=== PATIENT | male | born 1965 ===

== ENCOUNTER 2018-08-07 14:19 | Observation (INO) | payer OTHER ==
[2018-08-07 14:27] VITALS: O2SAT 100
--- NOTE | 2018-08-07 15:15 | RAD ---
Date of service: 08/07/2018 PROCEDURE: CHEST RADIOGRAPH, 1 VIEW HISTORY: chest pain COMPARISON: None available. FINDINGS: LUNGS: Clear. PLEURA: No pneumothorax or pleural fluid seen. CARDIOVASCULAR: No aortic atherosclerotic calcification present. Normal. OSSEOUS STRUCTURES: No significant abnormalities. VISUALIZED UPPER ABDOMEN: Normal. OTHER FINDINGS: None. IMPRESSION: No active disease.
[2018-08-07 15:19] LABS: BASO # 0.1 K/uL (0.0-0.2); EOS # 0.2 K/uL (0.0-0.7); EOS % 2.8 % (0.0-4.0); HEMOGLOBIN 13.5 g/dL (12.0-18.0); LYMPH # 1.4 K/uL (1.0-4.3); LYMPH % 22.1 % (20.0-40.0); MEAN CELL VOLUME 86.6 fL (80.0-94.0); MEAN CORPUSCULAR HEMOGLOBIN 30.1 pg (27.0-31.0); MEAN CORPUSCULAR HGB CONC 34.8 g/dL (33.0-37.0); MEAN PLATELET VOLUME 7.6 fL (7.2-11.7); MONO # 0.6 K/uL (0.0-0.8); MONO % 9.2 % (0.0-10.0); NEUT % 64.9 % (50.0-75.0); NRBC % 0.1 % (0.0-2.0); RBC 4.47 Mil/uL (4.40-5.90); RED CELL DISTRIBUTION WIDTH 13.3 % (11.5-14.5); WHITE BLOOD COUNT 6.2 K/uL (4.8-10.8)
[2018-08-07 15:31] LABS: ALB/GLOB RATIO 1.4 (1.0-2.1); ALBUMIN 3.8 g/dL (3.5-5.0); ALT/SGPT 36 U/L (21-72); AST/SGOT 28 U/L (17-59); BLOOD UREA NITROGEN 10 mg/dL (9-20); CALCIUM 8.4 mg/dl (8.6-10.4); GFR NON-AFRICAN AMERICAN > 60
--- NOTE | 2018-08-07 15:36 | CT ---
Date of service: 08/07/2018 PROCEDURE: CT HEAD WITHOUT CONTRAST. HISTORY: r/o ICH COMPARISON: None available. TECHNIQUE: Axial computed tomography images were obtained through the head/brain without intravenous contrast. Radiation dose: Total exam DLP = 1100.27 mGy-cm. This CT exam was performed using one or more of the following dose reduction techniques: Automated exposure control, adjustment of the mA and/or kV according to patient size, and/or use of iterative reconstruction technique. FINDINGS: HEMORRHAGE: No intracranial hemorrhage. BRAIN: No mass effect or edema. No atrophy or chronic microvascular ischemic changes. VENTRICLES: Unremarkable. No hydrocephalus. CALVARIUM: Unremarkable. PARANASAL SINUSES: Unremarkable as visualized. No significant inflammatory changes. MASTOID AIR CELLS: Unremarkable as visualized. No inflammatory changes. OTHER FINDINGS: None. IMPRESSION: No acute intracranial findings
[2018-08-07] MEDS ORDERED: Sodium Chloride 0.9% 1,000 ML IV SCH (16:15)
[2018-08-07] MEDS ORDERED: Sodium Chloride 0.9% 1,000 ML ONE (16:18)
--- NOTE | 2018-08-07 17:51 | C.PDOC ---
History Of Present Illness 53 y/o male presents to the ED, sent in by PMD Dr. Rockwell for headache and dizziness with elevated blood pressure. Blood pressure was 160/90 in the office. Patient has hx of HTN, admits to being compliant with medications. Upon arrival to the ED patient is complaining of dizziness, mild headache, and not feeling right. Denies any chest pain, SOB, fever, or cough. Time Seen by Provider: 08/07/18 14:31 Chief Complaint (Nursing): High Blood Pressure History Per: Patient History/Exam Limitations: no limitations Onset/Duration Of Symptoms: Days (2) Current Symptoms Are (Timing): Still Present Past Medical History Reviewed: Historical Data, Nursing Documentation, Vital Signs Vital Signs: Last Vital Signs Temp 97.3 F L 08/07/18 14:23 Pulse 63 08/07/18 17:10 Resp 16 08/07/18 17:10 BP 153/83 H 08/07/18 17:10 Pulse Ox 100 08/07/18 17:10 - Medical History PMH: HTN Family History: States: No Known Family Hx - Social History Hx Alcohol Use: No Hx Substance Use: No Review Of Systems Except As Marked, All Systems Reviewed And Found Negative. Constitutional: Negative for: Fever, Chills Eyes: Negative for: Vision Change Cardiovascular: Negative for: Chest Pain Respiratory: Negative for: Cough, Shortness of Breath Gastrointestinal: Negative for: Nausea, Vomiting Neurological: Positive for: Headache, Dizziness. Negative for: Weakness, Numbness, Change in Speech Physical Exam - Physical Exam Appears: Non-toxic, No Acute Distress Skin: Normal Color, Warm, Dry Head: Atraumatic, Normacephalic Eye(s): bilateral: Normal Inspection, PERRL, EOMI Oral Mucosa: Moist Neck: Normal ROM Chest: Symmetrical, No Tenderness Cardiovascular: Rhythm Regular, No Murmur Respiratory: Normal Breath Sounds, No Rales, No Rhonchi, No Wheezing Gastrointestinal/Abdominal: Soft, No Tenderness, No Distention Extremity: Bilateral: Atraumatic, Normal Color And Temperature, Normal ROM Pulses: Left Radial: Normal, Right Radial: Normal Neurological/Psych: Oriented x3, Normal Speech ED Course And Treatment - Laboratory Results Result Diagrams: 08/07/18 15:15 08/07/18 19:24 ECG: Interpreted By Me, Viewed By Me ECG Rhythm: Sinus Rhythm Interpretation Of ECG: normal axis and normal intervals Rate From EC O2 Sat by Pulse Oximetry: 100 (RA) Pulse Ox Interpretation: Normal - Radiology CXR: Read By Radiologist CXR Interpretation: Yes: No Acute Disease - CT Scan/US CT Head Other Rad Studies (CT/US): Read By Radiologist, Radiology Report Reviewed CT/US Interpretation: Accession No. : [id number]. Patient Name / ID : SID AVELAR / [id number]. Exam Date : 08/07/2018 15:18:27 ( Approved ). Study Comment : Sex / Age : M / 53Y. Creator : Thuy Frost. Dictator : Tulio De La Cruz MD. Mortgage Loan Officer : Ski Technician : Tulio De La Cruz MD. Approver2 : Report Date : 08/07/2018 15:24:50. My Comment : . Date of service: 08/07/2018. PROCEDURE: CT HEAD WITHOUT CONTRAST. HISTORY: r/o ICH. COMPARISON: None available. TECHNIQUE: Axial computed tomography images were obtained through the head/brain without intravenous contrast. Radiation dose: Total exam DLP = 1100.27 mGy-cm. This CT exam was performed using one or more of the following dose reduction techniques: Automated exposure control, adjustment of the mA and/or kV according to patient size, and/or use of iterative reconstruction technique. FINDINGS: HEMORRHAGE: No intracranial hemorrhage. BRAIN: No mass effect or edema. No atrophy or chronic micro vascular ischemic changes. VENTRICLES: Unremarkable. No hydrocephalus. CALVARIUM: Unremarkable. PARANASAL SINUSES: Unremarkable as visualized. No significant inflammatory changes. MASTOID AIR CELLS: Unremarkable as visualized. No inflammatory changes. OTHER FINDINGS: None. IMPRESSION: No acute intracranial findings Medical Decision Making Medical Decision Making: Impression: Hypertension, Dizziness, Headache Plan: --EKG --Blood work with cardiac enzymes --Flu swab --Chest x-ray --CT Head --Meclizine 25 mg PO --IVF hydration --Reassess [address] Rockwell, reviewed work-up, sodium found to be 125. Dr. Rockwell states sodium was wnl 1 month ago. Spoke to hospitalist, will admit to their service in telemetry. Disposition - Disposition Disposition: HOSPITALIZED Disposition Time: 16:15 Condition: FAIR - Clinical Impression Clinical Impression: Hyponatremia, Dizziness - Scribe Statement The provider has reviewed the documentation as recorded by the Al Cohn Provider Attestation: All medical record entries made by the Al were at my direction and personally dictated by me. I have reviewed the chart and agree that the record accurately reflects my personal performance of the history, physical exam, m edical decision making, and the department course for this patient. I have also personally directed, reviewed, and agree with the discharge instructions and disposition.
--- NOTE | 2018-08-07 18:20 | CP.PCM.HP ---
<Cr Wade - Last Filed: 08/07/18 20:11> History of Present Illness - History of Present Illness History of Present Illness: PGY2 Medicine H+P for Dr. Rivero Patient is a 53 year old male with a past medical history of hypertension and diabetes presenting to the hospital with complaint of headaches and nausea x 2 days. Patient was in the office of his PMD, Dr. Rockwell, when he was found to have a BP of 160/90. Patient states he just "does not feel right". During his stay in the emergency room he was found to be hyponatremic. Patient denies any fevers, chills, vomiting, diarrhea, constipation, chest pain, shortness of breath, palpitations, numbness or tingling. PMD: Moiz PMH: Hypertension and Diabetes PSH: Appendectomy Family: "Everyone has diabetes" Social: Denies tobacco, alcohol and illicit drug use Allergies: NKDA Home Meds: Patient states he takes insulin and a blood pressure medication but does not know the names or the doses of his medications. He does know the name of his pharmacy. Present on Admission - Present on Admission Any Indicators Present on Admission: No Review of Systems - Review of Systems All systems: reviewed and no additional remarkable complaints except - Constitutional Constitutional: As Per HPI - EENT Eyes: As Per HPI Ears: As Per HPI Nose/Mouth/Throat: As Per HPI - Cardiovascular Cardiovascular: As Per HPI - Respiratory Respiratory: As Per HPI - Gastrointestinal Gastrointestinal: As Per HPI - Genitourinary Genitourinary: As Per HPI - Musculoskeletal Musculoskeletal: As Per HPI - Integumentary Integumentary: As Per HPI - Neurological Neurological: As Per HPI - Psychiatric Psychiatric: As Per HPI - Endocrine Endocrine: As Per HPI - Hematologic/Lymphatic Hematologic: As Per HPI Past Patient History - Past Social History Smoking Status: Never Smoked - CARDIAC Hx Hypertension: Yes - ENDOCRINE/METABOLIC Hx Diabetes Mellitus Type 2: Yes - PSYCHIATRIC Hx Substance Use: No Meds Allergies/Adverse Reactions: Allergies Allergy/AdvReac Type Severity Reaction Status Date / Time No Known Allergies Allergy Verified 08/07/18 14:27 Physical Exam - Constitutional Appears: Non-toxic, No Acute Distress - Head Exam Head Exam: ATRAUMATIC, NORMOCEPHALIC - Eye Exam Eye Exam: EOMI, Normal appearance - ENT Exam ENT Exam: Mucous Membranes Moist - Neck Exam Neck exam: Positive for: Normal Inspection. Negative for: Lymphadenopathy - Respiratory Exam Respiratory Exam: Clear to Auscultation Bilateral, NORMAL BREATHING PATTERN. absent: Accessory Muscle Use, Rales, Rhonchi, Wheezes, Respiratory Distress - Cardiovascular Exam Cardiovascular Exam: REGULAR RHYTHM, +S1, +S2 - GI/Abdominal Exam GI & Abdominal Exam: Normal Bowel Sounds, Soft. absent: Distended, Guarding, Rebound, Rigid, Tenderness - Extremities Exam Extremities exam: Positive for: normal inspection, pedal pulses present. Negative for: calf tenderness - Neurological Exam Neurological exam: Alert, Oriented x3 - Psychiatric Exam Psychiatric exam: Normal Affect, Normal Mood - Skin Skin Exam: Dry, Warm Results - Vital Signs Recent Vital Signs: Last Vital Signs Temp 97.3 F L 08/07/18 14:23 Pulse 63 08/07/18 17:10 Resp 16 08/07/18 17:10 BP 153/83 H 08/07/18 17:10 Pulse Ox 100 08/07/18 17:55 - Labs Result Diagrams: 08/07/18 15:15 08/07/18 19:24 Labs: Laboratory Results - last 24 hr 08/07/18 08/07/18 08/07/18 14:27 15:15 15:15 WBC 6.2 RBC 4.47 Hgb 13.5 Hct 38.7 MCV 86.6 MCH 30.1 MCHC 34.8 RDW 13.3 Plt Count 150 MPV 7.6 Neut % (Auto) 64.9 Lymph % (Auto) 22.1 Tripp % (Auto) 9.2 Eos % (Auto) 2.8 Baso % (Auto) 1.0 Neut # (Auto) 4.0 Lymph # (Auto) 1.4 Tripp # (Auto) 0.6 Eos # (Auto) 0.2 Baso # (Auto) 0.1 Sodium Potassium Chloride Carbon Dioxide Anion Gap BUN Creatinine Est GFR ( Amer) Est GFR (Non-Af Amer) POC Glucose (mg/dL) 153 H Random Glucose Calcium Total Bilirubin AST ALT Alkaline Phosphatase Troponin I Total Protein Albumin Globulin Albumin/Globulin Ratio Influenza Typ A,B (EIA) Negative for flu a/b 08/07/18 15:15 WBC RBC Hgb Hct MCV MCH MCHC RDW Plt Count MPV Neut % (Auto) Lymph % (Auto) Tripp % (Auto) Eos % (Auto) Baso % (Auto) Neut # (Auto) Lymph # (Auto) Tripp # (Auto) Eos # (Auto) Baso # (Auto) Sodium 125 L Potassium 4.2 Chloride 91 L Carbon Dioxide 25 Anion Gap 13 BUN 10 Creatinine 0.7 L Est GFR ( Amer) > 60 Est GFR (Non-Af Amer) > 60 POC Glucose (mg/dL) Random Glucose 157 H Calcium 8.4 L Total Bilirubin 0.5 AST 28 ALT 36 Alkaline Phosphatase 93 Troponin I < 0.0120 Total Protein 6.5 Albumin 3.8 Globulin 2.7 Albumin/Globulin Ratio 1.4 Influenza Typ A,B (EIA) Assessment & Plan - Assessment and Plan (Free Text) Plan: Hyponatremia Nephro consulted, Dr. Whitaker * f/u recs Na+ 125 * repeat 125 Serum Osmol - 288 Urine Osmol - pending Urine Sodium - pending Zofran 4mg IVP q6h prn for nausea NS @75mL/hr Hypertension Hydralazine 10mg IVP q6h prn for BP > 160/90 TSH - pending Patient does not remember the names of his medications or pharmacy. Patient's is to bring medications tomorrow. Diabetes HgbA1c - pending ISS - Low Patient does not remember the names of his medications or pharmacy. Patient's is to bring medications tomorrow. Prophylactic Care Heparin 5,000u SC q12h Case discussed with Dr. Josefa Hankins Mauro PGY2 <Jordyn Rivero - Last Filed: 08/08/18 18:40> Results - Vital Signs Recent Vital Signs: Last Vital Signs Temp 98.0 F 08/08/18 08:00 Pulse 75 08/08/18 12:05 Resp 20 08/08/18 08:00 BP 150/79 08/08/18 09:11 Pulse Ox 100 08/08/18 12:05 - Labs Result Diagrams: 08/08/18 07:20 08/08/18 07:20 Labs: Laboratory Results - last 24 hr 08/07/18 08/07/18 08/07/18 19:24 19:24 21:19 WBC RBC Hgb Hct MCV MCH MCHC RDW Plt Count MPV Neut % (Auto) Lymph % (Auto) Tripp % (Auto) Eos % (Auto) Baso % (Auto) Neut # (Auto) Lymph # (Auto) Tripp # (Auto) Eos # (Auto) Baso # (Auto) Sodium 125 L Potassium 4.5 Chloride 89 L Carbon Dioxide 26 Anion Gap 14 BUN 11 Creatinine 0.8 Est GFR ( Amer) > 60 Est GFR (Non-Af Amer) > 60 POC Glucose (mg/dL) 423 H* Random Glucose 375 H Hemoglobin A1c Serum Osmolality 288 Uric Acid Calcium 8.4 L Total Bilirubin AST ALT Alkaline Phosphatase Total Protein Albumin Globulin Albumin/Globulin Ratio TSH 3rd Generation Urine Color Urine Clarity Urine pH Ur Specific [place] Urine Protein Urine Glucose (UA) Urine Ketones Urine Blood Urine Nitrate Urine Bilirubin Urine Urobilinogen Ur Leukocyte Esterase Urine WBC (Auto) Urine RBC (Auto) Urine Osmolality Ur Random Sodium 08/07/18 08/08/18 08/08/18 21:50 05:02 06:11 WBC RBC Hgb Hct MCV MCH MCHC RDW Plt Count MPV Neut % (Auto) Lymph % (Auto) Tripp % (Auto) Eos % (Auto) Baso % (Auto) Neut # (Auto) Lymph # (Auto) Tripp # (Auto) Eos # (Auto) Baso # (Auto) Sodium Potassium Chloride Carbon Dioxide Anion Gap BUN Creatinine Est GFR ( Amer) Est GFR (Non-Af Amer) POC Glucose (mg/dL) 251 H Random Glucose Hemoglobin A1c Serum Osmolality Uric Acid Calcium Total Bilirubin AST ALT Alkaline Phosphatase Total Protein Albumin Globulin Albumin/Globulin Ratio TSH 3rd Generation Urine Color Straw Urine Clarity Clear Urine pH 6.0 Ur Specific [place] 1.015 Urine Protein Negative Urine Glucose (UA) 3+ H Urine Ketones Negative Urine Blood Negative Urine Nitrate Negative Urine Bilirubin Negative Urine Urobilinogen Normal Ur Leukocyte Esterase Neg Urine WBC (Auto) < 1 Urine RBC (Auto) < 1 Urine Osmolality 222 L Ur Random Sodium 29 08/08/18 08/08/18 08/08/18 07:20 07:20 07:20 WBC 5.0 RBC 4.62 Hgb 13.9 Hct 39.9 MCV 86.2 MCH 30.1 MCHC 34.9 RDW 12.9 Plt Count 177 MPV 8.2 Neut % (Auto) 55.0 Lymph % (Auto) 28.8 Tripp % (Auto) 12.0 H Eos % (Auto) 3.0 Baso % (Auto) 1.2 Neut # (Auto) 2.7 Lymph # (Auto) 1.4 Tripp # (Auto) 0.6 Eos # (Auto) 0.2 Baso # (Auto) 0.1 Sodium 134 Potassium 4.6 Chloride 101 Carbon Dioxide 25 Anion Gap 13 BUN 19 Creatinine 1.0 Est GFR ( Amer) > 60 Est GFR (Non-Af Amer) > 60 POC Glucose (mg/dL) Random Glucose 295 H Hemoglobin A1c 8.6 H Serum Osmolality Uric Acid 3.3 L Calcium 8.8 Total Bilirubin 0.4 AST 59 D ALT 46 Alkaline Phosphatase 127 H D Total Protein 6.7 Albumin 3.8 Globulin 2.9 Albumin/Globulin Ratio 1.3 TSH 3rd Generation 3.14 Urine Color Urine Clarity Urine pH Ur Specific [place] Urine Protein Urine Glucose (UA) Urine Ketones Urine Blood Urine Nitrate Urine Bilirubin Urine Urobilinogen Ur Leukocyte Esterase Urine WBC (Auto) Urine RBC (Auto) Urine Osmolality Ur Random Sodium 08/08/18 11:02 WBC RBC Hgb Hct MCV MCH MCHC RDW Plt Count MPV Neut % (Auto) Lymph % (Auto) Tripp % (Auto) Eos % (Auto) Baso % (Auto) Neut # (Auto) Lymph # (Auto) Tripp # (Auto) Eos # (Auto) Baso # (Auto) Sodium Potassium Chloride Carbon Dioxide Anion Gap BUN Creatinine Est GFR ( Amer) Est GFR (Non-Af Amer) POC Glucose (mg/dL) 422 H* Random Glucose Hemoglobin A1c Serum Osmolality Uric Acid Calcium Total Bilirubin AST ALT Alkaline Phosphatase Total Protein Albumin Globulin Albumin/Globulin Ratio TSH 3rd Generation Urine Color Urine Clarity Urine pH Ur Specific [place] Urine Protein Urine Glucose (UA) Urine Ketones Urine Blood Urine Nitrate Urine Bilirubin Urine Urobilinogen Ur Leukocyte Esterase Urine WBC (Auto) Urine RBC (Auto) Urine Osmolality Ur Random Sodium Attending/Attestation - Attestation I have personally seen and examined this patient.: Yes I have fully participated in the care of the patient.: Yes I have reviewed all pertinent clinical information: Yes Notes (Text): seen and examined by me Patient has high BP and hyponatremia Assessment and the plan discussed with the resident in detail we will continue his home meds(patient doesn't know his meds.His will bring meds) monitor sugar d/w Dr Whitaker about hyponatremia. we will follow with him continue IV fluids
[2018-08-07] MEDS ORDERED: Dextrose 50% SYRINGE Inj (50 ml) IV PRN (18:28)
[2018-08-07] MEDS ORDERED: Glucagon Recombinant 1 mg Inj IM PRN (18:28)
[2018-08-07 19:42] LABS: BLOOD UREA NITROGEN 11 mg/dL (9-20); CALCIUM 8.4 mg/dl (8.6-10.4); GFR NON-AFRICAN AMERICAN > 60
[2018-08-07 19:43] VITALS: RESP 20
[2018-08-07] MEDS: (Novolin R) Insulin Human Regular 100 units/ml vial SC SCH (21:55)
[2018-08-07 22:06] LABS: OSMOLALITY,URINE 222 mosm/kg (300-1000)
--- NOTE | 2018-08-07 23:33 | CP.PCM.CON ---
History of Present Illness - History of Present Illness History of Present Illness: 53 yo M w/ pmh of htn, dm, presented to ED with headaches and nausea since past 2 days; found to have hyponatremia and hypertensive for which nephrology is being consulted; Patient reports headache, dizziness and associated vomiting since past 1-2 days; denies any vomiting or diarrhea; otherwise says appetite has been well; reports increased urination, particularly when his sugars are elevated (200-300's lately); denies any dysuria; reports having gained weight since past few months after not having been able to work during this period (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 absent: Change in Urinary Stream, Difficulty Urinating - Musculoskeletal Musculoskeletal: As Per HPI - Integumentary Integumentary: absent: Pruritus - Neurological Neurological: As Per HPI Past Patient History - Past Medical History & Family History Pertinent Family History: multiple people with diabetes - Past Social History Smoking Status: Former Smoker (stopped smoking 2 yrs ago) - CARDIAC Hx Hypertension: Yes - ENDOCRINE/METABOLIC Hx Diabetes Mellitus Type 2: Yes - PSYCHIATRIC Hx Substance Use: No Meds Allergies/Adverse Reactions: Allergies Allergy/AdvReac Type Severity Reaction Status Date / Time No Known Allergies Allergy Verified 08/07/18 14:27 - Medications Medications: Current Medications Dextrose (Dextrose 50% Inj) 0 ml IV STAT PRN; Protocol PRN Reason: Hypoglycemia Protocol Dextrose (Glutose 15) 0 gm PO ONCE PRN; Protocol PRN Reason: Hypoglycemia Protocol Glucagon (Glucagen Diagnostic Kit) 0 mg IM STAT PRN; Protocol PRN Reason: Hypoglycemia Protocol Heparin Sodium (Porcine) (Heparin) 5,000 units SC Q12 WOOD Last Admin: 08/07/18 21:56 Dose: 5,000 units Hydralazine HCl (Apresoline) 10 mg IVP Q6H PRN PRN Reason: SBP >160 or DBP>90 Sodium Chloride (Sodium Chloride 0.9%) 1,000 mls @ 75 mls/hr IV .[id number] [facility] Last Admin: 08/07/18 16:20 Dose: 75 mls/hr Dextrose (Dextrose 5% In Water 1000 Ml) 1,000 mls @ 0 mls/hr IV .Q0M PRN; Protocol PRN Reason: Hypoglycemia Protocol Insulin Human Regular (Novolin R) 0 unit SC ACHS [facility]; Protocol Last Admin: 08/07/18 21:55 Dose: 3 unit Ondansetron HCl (Zofran Inj) 4 mg IVP Q6 PRN PRN Reason: Nausea/Vomiting Pneumococcal Polyvalent Vaccine (Pneumovax 23 Vaccine) 0.5 ml IM .ONCE ONE Stop: 08/09/18 10:01 Physical Exam - Constitutional Appears: Non-toxic, No Acute Distress - Eye Exam Eye Exam: Normal appearance. absent: Scleral icterus - ENT Exam ENT Exam: Mucous Membranes Moist - Respiratory Exam Respiratory Exam: Clear to Auscultation Bilateral. absent: Respiratory Distress - Cardiovascular Exam Cardiovascular Exam: RRR, +S1, +S2. absent: JVD - GI/Abdominal Exam GI & Abdominal Exam: Soft. absent: Distended, Tenderness - Exam Exam: absent: Bladder Distension - Extremities Exam Extremities exam: Positive for: pedal pulses present Additional comments: no leg edema; - Back Exam Back exam: absent: CVA tenderness (L), CVA tenderness (R) - Neurological Exam Neurological exam: Alert, Oriented x3 - Psychiatric Exam Psychiatric exam: Normal Affect, Normal Mood - Skin Skin Exam: Normal Color, Warm Results - Vital Signs Recent Vital Signs: Last Vital Signs Temp 98.2 F 08/07/18 18:31 Pulse 74 08/07/18 20:07 Resp 20 08/07/18 18:31 BP 146/80 08/07/18 18:31 Pulse Ox 100 08/07/18 18:31 - Labs Result Diagrams: 08/07/18 15:15 08/07/18 19:24 Labs: Laboratory Results - last 24 hr 08/07/18 08/07/18 08/07/18 14:27 15:15 15:15 WBC 6.2 RBC 4.47 Hgb 13.5 Hct 38.7 MCV 86.6 MCH 30.1 MCHC 34.8 RDW 13.3 Plt Count 150 MPV 7.6 Neut % (Auto) 64.9 Lymph % (Auto) 22.1 Stanley % (Auto) 9.2 Eos % (Auto) 2.8 Baso % (Auto) 1.0 Neut # (Auto) 4.0 Lymph # (Auto) 1.4 Stanley # (Auto) 0.6 Eos # (Auto) 0.2 Baso # (Auto) 0.1 Sodium Potassium Chloride Carbon Dioxide Anion Gap BUN Creatinine Est GFR ( Amer) Est GFR (Non-Af Amer) POC Glucose (mg/dL) 153 H Random Glucose Serum Osmolality Calcium Total Bilirubin AST ALT Alkaline Phosphatase Troponin I Total Protein Albumin Globulin Albumin/Globulin Ratio Urine Osmolality Ur Random Sodium Influenza Typ A,B (EIA) Negative for flu a/b 08/07/18 08/07/18 08/07/18 15:15 19:24 19:24 WBC RBC Hgb Hct MCV MCH MCHC RDW Plt Count MPV Neut % (Auto) Lymph % (Auto) Stanley % (Auto) Eos % (Auto) Baso % (Auto) Neut # (Auto) Lymph # (Auto) Stanley # (Auto) Eos # (Auto) Baso # (Auto) Sodium 125 L 125 L Potassium 4.2 4.5 Chloride 91 L 89 L Carbon Dioxide 25 26 Anion Gap 13 14 BUN 10 11 Creatinine 0.7 L 0.8 Est GFR ( Amer) > 60 > 60 Est GFR (Non-Af Amer) > 60 > 60 POC Glucose (mg/dL) Random Glucose 157 H 375 H Serum Osmolality 288 Calcium 8.4 L 8.4 L Total Bilirubin 0.5 AST 28 ALT 36 Alkaline Phosphatase 93 Troponin I < 0.0120 Total Protein 6.5 Albumin 3.8 Globulin 2.7 Albumin/Globulin Ratio 1.4 Urine Osmolality Ur Random Sodium Influenza Typ A,B (EIA) 08/07/18 08/07/18 21:19 21:50 WBC RBC Hgb Hct MCV MCH MCHC RDW Plt Count MPV Neut % (Auto) Lymph % (Auto) Stanley % (Auto) Eos % (Auto) Baso % (Auto) Neut # (Auto) Lymph # (Auto) Stanley # (Auto) Eos # (Auto) Baso # (Auto) Sodium Potassium Chloride Carbon Dioxide Anion Gap BUN Creatinine Est GFR ( Amer) Est GFR (Non-Af Amer) POC Glucose (mg/dL) 423 H* Random Glucose Serum Osmolality Calcium Total Bilirubin AST ALT Alkaline Phosphatase Troponin I Total Protein Albumin Globulin Albumin/Globulin Ratio Urine Osmolality 222 L Ur Random Sodium 29 Influenza Typ A,B (EIA) - Imaging and Cardiology Chest x-ray Status: Image reviewed by me Additional comment: lungs clear Assessment & Plan (1) Hyponatremia Assessment and Plan: Moderate hyponatremia with urine osm somewhat elevated (drawn about 6 hrs after starting IVF and may have been higher on presentation); likely secondary to vo lume depletion in the setting of erratically controlled blood sugars; repeat bmp showing hyponatremia actually improving if taking into account elevated blood sugars; -agree with NS at 75 cc/hr; -need tighter blood sugar control; -avoid NSAIDS for pain (can potentiate the effect of ADH and worsen hypotremia); -no need for very strict PO fluid restriction for now; -monitor I/O; Status: Acute (2) Diabetes Assessment and Plan: High blood sugar readings; no diabetic foot ulcers but should r/o another infectious cause of high sugars; -will send for UA/culture; -checking urine for microalbumin/creatinine; Status: Acute (3) HTN (hypertension) Assessment and Plan: BP initially elevated, now better controlled after giving IVF (may indicate renin dependent hypertension in the setting of volume depletion); on enalapril at home, can continue same (although should be dosed twice daily for sustained effect); Status: Acute - Assessment and Plan (Free Text) Assessment: Thank you for this referral, we continue to follow.
[2018-08-08 02:07] VITALS: BP 150/79
[2018-08-08 05:08] LABS: URINE BILIRUBIN NEGATIVE (NEGATIVE); URINE BLOOD NEGATIVE (NEGATIVE); URINE CLARITY Clear (Clear); URINE COLOR Straw (YELLOW); URINE GLUCOSE (UA) 3+ mg/dL (Normal); URINE LEUKOCYTE ESTERASE NEG Leu/uL (Negative); URINE PROTEIN NEGATIVE (NEGATIVE); URINE UROBILINOGEN NORMAL mg/dL (0.2-1.0)
[2018-08-08 07:38] LABS: BASO # 0.1 K/uL (0.0-0.2); BASO % 1.2 % (0.0-2.0); EOS # 0.2 K/uL (0.0-0.7); HEMOGLOBIN 13.9 g/dL (12.0-18.0); LYMPH # 1.4 K/uL (1.0-4.3); LYMPH % 28.8 % (20.0-40.0); MEAN CELL VOLUME 86.2 fL (80.0-94.0); MEAN CORPUSCULAR HEMOGLOBIN 30.1 pg (27.0-31.0); MEAN CORPUSCULAR HGB CONC 34.9 g/dL (33.0-37.0); MEAN PLATELET VOLUME 8.2 fL (7.2-11.7); MONO # 0.6 K/uL (0.0-0.8); NEUT # 2.7 K/uL (1.8-7.0); NRBC % 0.2 % (0.0-2.0); RBC 4.62 Mil/uL (4.40-5.90); RED CELL DISTRIBUTION WIDTH 12.9 % (11.5-14.5)
[2018-08-08 07:51] LABS: URIC ACID 3.3 mg/dL (3.5-8.5)
[2018-08-08 08:16] VITALS: TEMP 98
[2018-08-08] MEDS: (Novolin R) Insulin Human Regular 100 units/ml vial SC SCH ×2 (08:40→11:43)
[2018-08-08 09:37] LABS: ALB/GLOB RATIO 1.3 (1.0-2.1); ALBUMIN 3.8 g/dL (3.5-5.0); ALT/SGPT 46 U/L (21-72); AST/SGOT 59 U/L (17-59); BLOOD UREA NITROGEN 19 mg/dL (9-20); CALCIUM 8.8 mg/dl (8.6-10.4); GFR NON-AFRICAN AMERICAN > 60
[2018-08-08] MEDS ORDERED: Insulin Detemir 100 units/ml Vial (Levemir) SC SCH (10:00)
[2018-08-08] MEDS ORDERED: Insulin Detemir 100 units/ml Vial (Levemir) SC STA (11:27)
[2018-08-08 13:24] VITALS: PULSE 75
--- NOTE | 2018-08-08 13:59 | CP.PCM.DIS ---
<TrevorTaniyalinettetomas - Last Filed: 08/08/18 13:55> Provider - Provider Date of Admission: 08/07/18 16:39 Attending physician: Jordyn Rivero MD Consults: 08/07/18 18:42 Nephrology Consult Routine Comment: Consulting Provider: Ramón Whitaker Consulting Physician: Ramón Whitaker Reason for Consult: hyponatremia, hypertension Time Spent in preparation of Discharge (in minutes): 70 Hospital Course - Lab Results Lab Results: Most Recent Lab Values WBC 5.0 K/uL (4.8-10.8) 08/08/18 07:20 RBC 4.62 Mil/uL (4.40-5.90) 08/08/18 07:20 Hgb 13.9 g/dL (12.0-18.0) 08/08/18 07:20 Hct 39.9 % (35.0-51.0) 08/08/18 07:20 MCV 86.2 fL (80.0-94.0) 08/08/18 07:20 MCH 30.1 pg (27.0-31.0) 08/08/18 07:20 MCHC 34.9 g/dL (33.0-37.0) 08/08/18 07:20 RDW 12.9 % (11.5-14.5) 08/08/18 07:20 Plt Count 177 K/uL (130-400) 08/08/18 07:20 MPV 8.2 fL (7.2-11.7) 08/08/18 07:20 Neut % (Auto) 55.0 % (50.0-75.0) 08/08/18 07:20 Lymph % (Auto) 28.8 % (20.0-40.0) 08/08/18 07:20 [place] % (Auto) 12.0 % (0.0-10.0) H 08/08/18 07:20 Eos % (Auto) 3.0 % (0.0-4.0) 08/08/18 07:20 Baso % (Auto) 1.2 % (0.0-2.0) 08/08/18 07:20 Neut # (Auto) 2.7 K/uL (1.8-7.0) 08/08/18 07:20 Lymph # (Auto) 1.4 K/uL (1.0-4.3) 08/08/18 07:20 [place] # (Auto) 0.6 K/uL (0.0-0.8) 08/08/18 07:20 Eos # (Auto) 0.2 K/uL (0.0-0.7) 08/08/18 07:20 Baso # (Auto) 0.1 K/uL (0.0-0.2) 08/08/18 07:20 Sodium 134 mmol/L (132-148) 08/08/18 07:20 Potassium 4.6 mmol/L (3.6-5.2) 08/08/18 07:20 Chloride 101 mmol/L (98-107) 08/08/18 07:20 Carbon Dioxide 25 mmol/L (22-30) 08/08/18 07:20 Anion Gap 13 (10-20) 08/08/18 07:20 BUN 19 mg/dL (9-20) 08/08/18 07:20 Creatinine 1.0 mg/dL (0.8-1.5) 08/08/18 07:20 Est GFR ( Amer) > 60 08/08/18 07:20 Est GFR (Non-Af Amer) > 60 08/08/18 07:20 POC Glucose (mg/dL) 422 mg/dL (65-110) H* 08/08/18 11:02 Random Glucose 295 mg/dL (75-110) H 08/08/18 07:20 Hemoglobin A1c 8.6 % (4.2-6.5) H 08/08/18 07:20 Serum Osmolality 288 mosm/kg (272-300) 08/07/18 19:24 Uric Acid 3.3 mg/dL (3.5-8.5) L 08/08/18 07:20 Calcium 8.8 mg/dl (8.6-10.4) 08/08/18 07:20 Total Bilirubin 0.4 mg/dL (0.2-1.3) 08/08/18 07:20 AST 59 U/L (17-59) D 08/08/18 07:20 ALT 46 U/L (21-72) 08/08/18 07:20 Alkaline Phosphatase 127 U/L (38-126) H D 08/08/18 07:20 Troponin I < 0.0120 ng/mL (0.00-0.120) 08/07/18 15:15 Total Protein 6.7 g/dL (6.3-8.3) 08/08/18 07:20 Albumin 3.8 g/dL (3.5-5.0) 08/08/18 07:20 Globulin 2.9 gm/dL (2.2-3.9) 08/08/18 07:20 Albumin/Globulin Ratio 1.3 (1.0-2.1) 08/08/18 07:20 TSH 3rd Generation 3.14 mIU/L (0.46-4.68) 08/08/18 07:20 Urine Color Straw (YELLOW) 08/08/18 05:02 Urine Clarity Clear (Clear) 08/08/18 05:02 Urine pH 6.0 (5.0-8.0) 08/08/18 05:02 Ur Specific [place] 1.015 (1.003-1.030) 08/08/18 05:02 Urine Protein Negative mg/dL (NEGATIVE) 08/08/18 05:02 Urine Glucose (UA) 3+ mg/dL (Normal) H 08/08/18 05:02 Urine Ketones Negative mg/dL (NEGATIVE) 08/08/18 05:02 Urine Blood Negative (NEGATIVE) 08/08/18 05:02 Urine Nitrate Negative (NEGATIVE) 08/08/18 05:02 Urine Bilirubin Negative (NEGATIVE) 08/08/18 05:02 Urine Urobilinogen Normal mg/dL (0.2-1.0) 08/08/18 05:02 Ur Leukocyte Esterase Neg Horacio/uL (Negative) 08/08/18 05:02 Urine WBC (Auto) < 1 /hpf (0-5) 08/08/18 05:02 Urine RBC (Auto) < 1 /hpf (0-3) 08/08/18 05:02 Urine Osmolality 222 mosm/kg (300-1000) L 08/07/18 21:50 Ur Random Sodium 29 mmol/L 08/07/18 21:50 Influenza Typ A,B (EIA) Negative for flu a/b (NEGATIVE) 08/07/18 15:15 - Hospital Course Hospital Course: Upon admission: Patient is a 53 year old male with a past medical history of hypertension and diabetes presenting to the hospital with complaint of headaches and nausea x 2 days. Patient was in the office of his PMD, Dr. Rockwell, when he was found to have a BP of 160/90. Patient states he just "does not feel right". During his stay in the emergency room he was found to be hyponatremic. Patient denies any fevers, chills, vomiting, diarrhea, constipation, chest pain, shortness of breath, palpitations, numbness or tingling. Pt was admitted for hyponatremia. Hospital Course: Repeat BMP showed hyponatremia. Pt was given IV fluids @75 cc/hr Pt was found to by hypoglycemic. Pt was started on long acting insulin for glucose control. Nephro was consulted and recommended fluids and tight glucose control. Hyponatremia was likely secondary to increased urination and PO water intake as patient is uncontrolled diabetic. The following day, BMP showed resolved hyponatremia. Pt was deemed stable for discharge. Upon Discharge: Pt was deemed stable for discharge to home. Pt was instructed to take home medications of enalapril, lantus, and humulin as prescribed. He was instructed to follow up with his PMD Dr. Rockwell within 5 days. Pt understood instructions and agreed. Discharge Exam - Head Exam Head Exam: ATRAUMATIC, NORMOCEPHALIC - Eye Exam Eye Exam: EOMI, Normal appearance, PERRL Pupil Exam: NORMAL ACCOMODATION - ENT Exam ENT Exam: Mucous Membranes Moist - Respiratory Exam Respiratory Exam: Clear to PA & Lateral, NORMAL BREATHING PATTERN. absent: Rales, Rhonchi, Wheezes - Cardiovascular Exam Cardiovascular Exam: REGULAR RHYTHM, +S1, +S2. absent: Gallop, Rubs, Systolic Murmur - GI/Abdominal Exam GI & Abdominal Exam: Normal Bowel Sounds, Soft. absent: Distended, Tenderness - Extremities Exam Extremities exam: normal inspection - Neurological Exam Neurological exam: Alert, CN II-XII Intact, Oriented x3 - Psychiatric Exam Psychiatric exam: Normal Affect, Normal Mood - Skin Skin Exam: Normal Color Discharge Plan - Discharge Medications Prescriptions: RX: Enalapril Maleate [Vasotec] 10 mg PO BID #60 tab Insulin Glargine, Recombina [Lantus] 25 unit SC HS 30 Days ml Insulin Regular, Human [Humulin R U-500 Kwikpen] 500 unit SQ ACHS 30 Days insuln.pen - Follow Up Plan Condition: FAIR Disposition: HOME/ ROUTINE Additional Instructions: Please follow up with your primary care physician Dr. Rockwell within 5 days. Please check your blood sugar regularly. Please avoid any foods or drink with sugar as it will worsen your diabetes. Please take your medications as prescribed. Please drink plenty of water. Please return to the emergency department if symptoms return. Take care and be well. Por favor rajat un seguimiento con rosado mdico de atencin primaria, el Dr. Rockwell, dentro de los 5 rodriguez. Por favor revise rosado azcar en la jemma regularmente. Por favor, evite cualquier alimento o bebida con azcar ya que empeorar rosado diabetes. Por favor, tome claudia medicamentos segn lo prescrito. Por favor, beber eduardo agua. Por favor regrese al departamento de emergencias si los sntomas regresan. Cudate y sintete yesika. <Jordyn Rivero - Last Filed: 08/08/18 14:06> Provider - Provider Date of Admission: 08/07/18 16:39 Attending physician: Jordyn Rivero MD Consults: 08/07/18 18:42 Nephrology Consult Routine Comment: Consulting Provider: Ramón Whitaker Consulting Physician: Ramón Whitaker Reason for Consult: hyponatremia, hypertension Hospital Course - Lab Results Lab Results: Most Recent Lab Values WBC 5.0 K/uL (4.8-10.8) 08/08/18 07:20 RBC 4.62 Mil/uL (4.40-5.90) 08/08/18 07:20 Hgb 13.9 g/dL (12.0-18.0) 08/08/18 07:20 Hct 39.9 % (35.0-51.0) 08/08/18 07:20 MCV 86.2 fL (80.0-94.0) 08/08/18 07:20 MCH 30.1 pg (27.0-31.0) 08/08/18 07:20 MCHC 34.9 g/dL (33.0-37.0) 08/08/18 07:20 RDW 12.9 % (11.5-14.5) 08/08/18 07:20 Plt Count 177 K/uL (130-400) 08/08/18 07:20 MPV 8.2 fL (7.2-11.7) 08/08/18 07:20 Neut % (Auto) 55.0 % (50.0-75.0) 08/08/18 07:20 Lymph % (Auto) 28.8 % (20.0-40.0) 08/08/18 07:20 [place] % (Auto) 12.0 % (0.0-10.0) H 08/08/18 07:20 Eos % (Auto) 3.0 % (0.0-4.0) 08/08/18 07:20 Baso % (Auto) 1.2 % (0.0-2.0) 08/08/18 07:20 Neut # (Auto) 2.7 K/uL (1.8-7.0) 08/08/18 07:20 Lymph # (Auto) 1.4 K/uL (1.0-4.3) 08/08/18 07:20 [place] # (Auto) 0.6 K/uL (0.0-0.8) 08/08/18 07:20 Eos # (Auto) 0.2 K/uL (0.0-0.7) 08/08/18 07:20 Baso # (Auto) 0.1 K/uL (0.0-0.2) 08/08/18 07:20 Sodium 134 mmol/L (132-148) 08/08/18 07:20 Potassium 4.6 mmol/L (3.6-5.2) 08/08/18 07:20 Chloride 101 mmol/L (98-107) 08/08/18 07:20 Carbon Dioxide 25 mmol/L (22-30) 08/08/18 07:20 Anion Gap 13 (10-20) 08/08/18 07:20 BUN 19 mg/dL (9-20) 08/08/18 07:20 Creatinine 1.0 mg/dL (0.8-1.5) 08/08/18 07:20 Est GFR ( Amer) > 60 08/08/18 07:20 Est GFR (Non-Af Amer) > 60 08/08/18 07:20 POC Glucose (mg/dL) 422 mg/dL (65-110) H* 08/08/18 11:02 Random Glucose 295 mg/dL (75-110) H 08/08/18 07:20 Hemoglobin A1c 8.6 % (4.2-6.5) H 08/08/18 07:20 Serum Osmolality 288 mosm/kg (272-300) 08/07/18 19:24 Uric Acid 3.3 mg/dL (3.5-8.5) L 08/08/18 07:20 Calcium 8.8 mg/dl (8.6-10.4) 08/08/18 07:20 Total Bilirubin 0.4 mg/dL (0.2-1.3) 08/08/18 07:20 AST 59 U/L (17-59) D 08/08/18 07:20 ALT 46 U/L (21-72) 08/08/18 07:20 Alkaline Phosphatase 127 U/L (38-126) H D 08/08/18 07:20 Troponin I < 0.0120 ng/mL (0.00-0.120) 08/07/18 15:15 Total Protein 6.7 g/dL (6.3-8.3) 08/08/18 07:20 Albumin 3.8 g/dL (3.5-5.0) 08/08/18 07:20 Globulin 2.9 gm/dL (2.2-3.9) 08/08/18 07:20 Albumin/Globulin Ratio 1.3 (1.0-2.1) 08/08/18 07:20 TSH 3rd Generation 3.14 mIU/L (0.46-4.68) 08/08/18 07:20 Urine Color Straw (YELLOW) 08/08/18 05:02 Urine Clarity Clear (Clear) 08/08/18 05:02 Urine pH 6.0 (5.0-8.0) 08/08/18 05:02 Ur Specific [place] 1.015 (1.003-1.030) 08/08/18 05:02 Urine Protein Negative mg/dL (NEGATIVE) 08/08/18 05:02 Urine Glucose (UA) 3+ mg/dL (Normal) H 08/08/18 05:02 Urine Ketones Negative mg/dL (NEGATIVE) 08/08/18 05:02 Urine Blood Negative (NEGATIVE) 08/08/18 05:02 Urine Nitrate Negative (NEGATIVE) 08/08/18 05:02 Urine Bilirubin Negative (NEGATIVE) 08/08/18 05:02 Urine Urobilinogen Normal mg/dL (0.2-1.0) 08/08/18 05:02 Ur Leukocyte Esterase Neg Horacio/uL (Negative) 08/08/18 05:02 Urine WBC (Auto) < 1 /hpf (0-5) 08/08/18 05:02 Urine RBC (Auto) < 1 /hpf (0-3) 08/08/18 05:02 Urine Osmolality 222 mosm/kg (300-1000) L 08/07/18 21:50 Ur Random Sodium 29 mmol/L 08/07/18 21:50 Influenza Typ A,B (EIA) Negative for flu a/b (NEGATIVE) 08/07/18 15:15 Attending/Attestation - Attestation I have personally seen and examined this patient.: Yes I have fully participated in the care of the patient.: Yes I have reviewed all pertinent clinical information, including history, physical exam and plan: Yes Notes (Text): Seen and examined,continue home meds and follow his primary care for sugar and BP control 08/08/18 14:06
--- NOTE | 2018-08-08 20:13 | CARD ---
APPROVED REPORT Date of service: 08/07/2018 EKG Measurement [id number] <Conclusion> Normal sinus rhythm Normal ECG
--- NOTE | 2018-08-08 23:08 | CP.PCM.PN ---
Objective - Vital Signs/Intake and Output Vital Signs (last 24 hours): Temp Pulse Resp BP Pulse Ox 98.0 F 75 20 150/79 100 08/08/18 08:00 08/08/18 12:05 08/08/18 08:00 08/08/18 09:11 08/08/18 12:05 - Labs Labs: 08/08/18 07:20 08/08/18 07:20 Assessment and Plan (1) Hyponatremia Status: Acute (2) Diabetes Status: Acute (3) HTN (hypertension) Status: Acute
[2018-08-09] MEDS ORDERED: Pneumococcal 23-Valent Vaccine IM ONE (10:00)
[2018-08-09] MEDS ORDERED: Influenza Vaccine 60 MCG/0.5 ML SYR (3 yr & up) IM ONE (12:00)
== END 2018-08-08 15:00 | disposition home or self-care (01) ==
LOC: C.ER 14:19 → C.6T 16:39
PROVIDERS: ADMIT Internal Medicine; ATTEND Internal Medicine
DX: E87.1 Hypo-osmolality and hyponatremia (principal); I10 Essential (primary) hypertension; E11.649 Type 2 diabetes mellitus with hypoglycemia without coma; Z83.3 Family history of diabetes mellitus; E11.65 Type 2 diabetes mellitus with hyperglycemia
CPT/HCPCS: 36415; 70450; 71045; 80048; 80053; 81001; 82043; 82570; 82948; 83036; 83930; 83935; 84300; 84443; 84484; 84550; 85025; 87086; 87804; 93005; 96372; 99285; G0378; J1644; J7030

== ENCOUNTER 2018-09-26 00:59 | Inpatient (IN) | payer MEDICAID, OTHER ==
[2018-09-26 01:13] VITALS: RESP 20
--- NOTE | 2018-09-26 01:18 | C.PDOC ---
Time Seen by Provider: 09/26/18 01:17 Chief Complaint (Nursing): Chest Pain Past Medical History Vital Signs: Last Vital Signs Temp 97.8 F 09/26/18 01:08 Pulse 81 09/26/18 01:08 Resp 20 09/26/18 01:08 BP 132/83 09/26/18 01:08 Pulse Ox 100 09/26/18 01:08 - Medical History PMH: HTN Surgical History: Appendectomy - Social History Hx Alcohol Use: No Hx Substance Use: No - Immunization History Hx Tetanus Toxoid Vaccination: No Hx Influenza Vaccination: No Hx Pneumococcal Vaccination: No ED Course And Treatment O2 Sat by Pulse Oximetry: 100 Disposition Counseled Patient/Family Regarding: Studies Performed, Diagnosis - Disposition Disposition Time: 01:18
--- NOTE | 2018-09-26 01:19 | C.PDOC ---
History Of Present Illness Patient was watching tv when hw developed some chest pain and felt his heart racing. When medics arrived, he was in svt at around 180-190 bpm. 6 mg iv adenosine given, and pt returned to nsr 70's. Still with mild dull chest wall ache. No f/c/n/v. Speaking in complete sentences Time Seen by Provider: 09/26/18 01:17 Chief Complaint (Nursing): Chest Pain History Per: Patient History/Exam Limitations: no limitations Onset/Duration Of Symptoms: Hrs Current Symptoms Are (Timing): Gone Severity: Moderate Pain Scale Rating Of: 4 Recent travel outside of the [place]: No Additional History Per: EMS, Family Past Medical History Reviewed: Historical Data, Nursing Documentation, Vital Signs Vital Signs: Last Vital Signs Temp 97.8 F 09/26/18 01:08 Pulse 81 09/26/18 01:08 Resp 20 09/26/18 01:08 BP 132/83 09/26/18 01:08 Pulse Ox 100 09/26/18 01:08 - Medical History PMH: HTN Surgical History: Appendectomy Family History: States: No Known Family Hx - Social History Hx Alcohol Use: No Hx Substance Use: No - Immunization History Hx Tetanus Toxoid Vaccination: No Hx Influenza Vaccination: No Hx Pneumococcal Vaccination: No Review Of Systems Constitutional: Negative for: Fever, Chills Eyes: Negative for: Vision Change ENT: Negative for: Throat Pain Cardiovascular: Positive for: Chest Pain, Palpitations Respiratory: Negative for: Shortness of Breath Gastrointestinal: Negative for: Nausea, Vomiting, Abdominal Pain Genitourinary: Negative for: Dysuria Musculoskeletal: Negative for: Back Pain Skin: Negative for: Rash Neurological: Negative for: Weakness Psych: Negative for: Anxiety Physical Exam - Physical Exam Appears: Non-toxic Skin: Warm, Dry Head: Normacephalic Eye(s): bilateral: Normal Inspection Oral Mucosa: Moist Neck: Supple Chest: Symmetrical Cardiovascular: Rhythm Regular Respiratory: No Rales, No Rhonchi Gastrointestinal/Abdominal: Soft, No Tenderness, No Distention Back: Normal Inspection Extremity: Normal ROM Extremity: Bilateral: Atraumatic Pulses: Left Dorsalis Pedis: Normal, Right Dorsalis Pedis: Normal Neurological/Psych: Oriented x3 Gait: Steady ED Course And Treatment - Laboratory Results Result Diagrams: 09/26/18 01:23 09/26/18 01:23 ECG: Interpreted By Me, Viewed By Me ECG Rhythm: Sinus Rhythm (71), Nonspecific Changes O2 Sat by Pulse Oximetry: 100 Pulse Ox Interpretation: Normal - Radiology CXR: Interpreted by Me, Viewed By Me CXR Interpretation: No: Infiltrates, Fracture, Pnemothorax Disposition Discussed With DrDaniel: Gonzalo Sharpe Comment: accepted the pt on his service and took over the care at 2:08 AM Doctor Will See Patient In The: ED Counseled Patient/Family Regarding: Studies Performed, Diagnosis - Disposition Disposition: HOSPITALIZED Disposition Time: :19 Condition: FAIR Forms: [employer] ([place]a) - Clinical Impression Clinical Impression: Chest pain, SVT (supraventricular tachycardia)
[2018-09-26 01:27] LABS: BASO # 0.1 K/uL (0.0-0.2); BASO % 0.9 % (0.0-2.0); EOS # 0.2 K/uL (0.0-0.7); HEMOGLOBIN 14.4 g/dL (12.0-18.0); LYMPH # 2.4 K/uL (1.0-4.3); LYMPH % 28.6 % (20.0-40.0); MEAN CELL VOLUME 85.8 fL (80.0-94.0); MEAN CORPUSCULAR HEMOGLOBIN 29.9 pg (27.0-31.0); MEAN CORPUSCULAR HGB CONC 34.8 g/dL (33.0-37.0); MEAN PLATELET VOLUME 7.9 fL (7.2-11.7); MONO # 0.6 K/uL (0.0-0.8); MONO % 7.4 % (0.0-10.0); NEUT # 5.1 K/uL (1.8-7.0); NEUT % 61.1 % (50.0-75.0); NRBC % 0.1 % (0.0-2.0); RBC 4.83 Mil/uL (4.40-5.90); RED CELL DISTRIBUTION WIDTH 12.8 % (11.5-14.5); WHITE BLOOD COUNT 8.3 K/uL (4.8-10.8)
[2018-09-26 01:38] LABS: INR 0.9
[2018-09-26 01:42] LABS: ALB/GLOB RATIO 1.5 (1.0-2.1); ALT/SGPT 24 U/L (21-72); AST/SGOT 26 U/L (17-59); BLOOD UREA NITROGEN 18 mg/dL (9-20); CALCIUM 8.8 mg/dl (8.6-10.4); GFR NON-AFRICAN AMERICAN > 60
[2018-09-26] MEDS ORDERED: Aspirin 325 mg EC Tablets PO ONE (01:42)
[2018-09-26 01:47] LABS: PROTHROMBIN TIME 9.8 SECONDS (9.7-12.2)
[2018-09-26 01:53] LABS: B-TYPE NATRIURETIC PEPTIDE 211 pg/mL (0-900)
--- NOTE | 2018-09-26 02:20 | CP.PCM.HP ---
<Yusef Sierra - Last Filed: 09/26/18 05:50> History of Present Illness - History of Present Illness History of Present Illness: PGY1 H&P for Medicine Hospitalist Patient is a 53 year old male with a past medical history of HTN, IDDM2 who reports sudden onset of palpitations at 8 pm on 09/25/18. Pt reports balta he was watching TV, when he felt a "punch" in the left side of his chest and proceeded to have palpitations. He denies any other chest pain other than that initial "punch," but reports that these palpitations were constant and associated with lightheadedness, dizziness, nausea, and some blurry vision. He called 911, and HR was noted to be in the 180s by EMS, and they proceeded to give Adenosine which stopped all symptoms. In the ED, EKG shows NSR at 71, no STTW changes, TWI in lead II. Pt received ASA 325 mg PO in the ED as well. Currently, pt has no complaints. Patient denies any fevers, chills, headache, associated falls or trauma, recent medication changes, OTC medication changes, recent alcohol use, increased stress, denies dyspnea or chest pain on exertion. Pt has never had these symptoms before. A few months ago, pt fell off of a ladder and hit his head on a bathtub. He was treated in a hospital in [place], and he reports that "tests was okay "at that time. PMD: Rockwell PMH: HTN, IDDM2 PSH: Appendectomy 7 years ago Meds: Insulin Glargine 35 units in the morning, Enalapril 10 mg PO BID Family: "Everyone has diabetes" Allergies: NKDA FHx: strong family history of diabetes. father passed at age 70. Mother when he was 12 years old. Siblings passed at young age as well. 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 Occasional EtOH use. 7 pack year history (quit 4 years ago). Denies drug use. Present on Admission - Present on Admission Any Indicators Present on Admission: Yes History of Uncontrolled Diabetes: Yes Review of Systems - Review of Systems All systems: reviewed and no additional remarkable complaints except (as per HPI) Past Patient History - Past Social History Smoking Status: Former Smoker - CARDIAC Hx Hypertension: Yes - ENDOCRINE/METABOLIC Hx Diabetes Mellitus Type 2: Yes - PSYCHIATRIC Hx Substance Use: No - SURGICAL HISTORY Hx Appendectomy: Yes - ANESTHESIA Hx Anesthesia: Yes Hx Anesthesia Reactions: No Meds Allergies/Adverse Reactions: Allergies Allergy/AdvReac Type Severity Reaction Status Date / Time No Known Allergies Allergy Verified 09/26/18 01:14 Physical Exam - Constitutional Appears: Non-toxic, No Acute Distress - Head Exam Head Exam: ATRAUMATIC, NORMAL INSPECTION - Eye Exam Eye Exam: EOMI, Normal appearance, PERRL - ENT Exam ENT Exam: Mucous Membranes Moist - Respiratory Exam Respiratory Exam: Clear to Auscultation Bilateral, NORMAL BREATHING PATTERN. absent: Chest Wall Tenderness, Rales, Rhonchi, Wheezes - Cardiovascular Exam Cardiovascular Exam: REGULAR RHYTHM, +S1, +S2. absent: Tachycardia, Irregular Rhythm, Systolic Murmur - GI/Abdominal Exam GI & Abdominal Exam: Normal Bowel Sounds, Soft. absent: Distended, Firm, Guarding, Rebound, Rigid, Tenderness - Back Exam Back exam: NORMAL INSPECTION - Neurological Exam Neurological exam: Alert, Oriented x3 Additional comments: sensation intact in distal feet - Psychiatric Exam Psychiatric exam: Normal Affect, Normal Mood - Skin Skin Exam: Dry, Normal Color, Warm Results - Vital Signs Recent Vital Signs: Last Vital Signs Temp 97.8 F 09/26/18 01:08 Pulse 81 09/26/18 01:08 Resp 20 09/26/18 01:08 BP 132/83 09/26/18 01:08 Pulse Ox 100 09/26/18 02:08 - Labs Result Diagrams: 09/26/18 01:23 09/26/18 01:23 Labs: Laboratory Results - last 24 hr 09/26/18 09/26/18 09/26/18 01:18 01:21 01:23 WBC 8.3 D RBC 4.83 Hgb 14.4 Hct 41.5 MCV 85.8 MCH 29.9 MCHC 34.8 RDW 12.8 Plt Count 197 MPV 7.9 Neut % (Auto) 61.1 Lymph % (Auto) 28.6 [place] % (Auto) 7.4 Eos % (Auto) 2.0 Baso % (Auto) 0.9 Neut # (Auto) 5.1 Lymph # (Auto) 2.4 [place] # (Auto) 0.6 Eos # (Auto) 0.2 Baso # (Auto) 0.1 PT 9.8 INR 0.9 APTT 32 Sodium Potassium Chloride Carbon Dioxide Anion Gap BUN Creatinine Est GFR ( Amer) Est GFR (Non-Af Amer) POC Glucose (mg/dL) 94 Random Glucose Calcium Total Bilirubin AST ALT Alkaline Phosphatase Troponin I NT-Pro-B Natriuret Pep Total Protein Albumin Globulin Albumin/Globulin Ratio TSH 3rd Generation 09/26/18 01:23 WBC RBC Hgb Hct MCV MCH MCHC RDW Plt Count MPV Neut % (Auto) Lymph % (Auto) [place] % (Auto) Eos % (Auto) Baso % (Auto) Neut # (Auto) Lymph # (Auto) [place] # (Auto) Eos # (Auto) Baso # (Auto) PT INR APTT Sodium 135 Potassium 3.1 L Chloride 103 Carbon Dioxide 23 Anion Gap 13 BUN 18 Creatinine 0.8 Est GFR ( Amer) > 60 Est GFR (Non-Af Amer) > 60 POC Glucose (mg/dL) Random Glucose 98 D Calcium 8.8 Total Bilirubin 0.4 AST 26 ALT 24 Alkaline Phosphatase 128 H Troponin I 0.0390 NT-Pro-B Natriuret Pep 211 Total Protein 6.7 Albumin 4.0 Globulin 2.6 Albumin/Globulin Ratio 1.5 TSH 3rd Generation 4.30 Assessment & Plan - Assessment and Plan (Free Text) Assessment: Patient is a 53 year old male with a past medical history of HTN, IDDM2 who reports sudden onset of palpitations. Found to be in SVT in the field, medically cardioverted with Adenosine. Asymptomatic on admission. Plan: SVT, requiring medical cardioversion with SVT; r/o ischemic heart disease Phosphorous to be repleted with Neutro phos 1 packet QID Potassium (3.1), likely secondary to the hypomagnesemia, to be repleted with KDur 40 meq PO Magnesium (1.7) to be repleted with Magnesium 1g IVPB x1 Will start metoprolol succinate 25 mg PO daily for cardioprotection Troponin x1 is 0.0390, will trend q6h x2 CXR shows pulmonary vascular congestion; similar to prior CXR on July admission. F/u official reading Echocardiogram ordered to r/o cardiomyopathy Cardiology, Dr. Gracia, consulted. Recommendations appreciated F/u urine drug screen Hx of IDDM2 HgbA1c is 8.6 on July 2018 admission Accuchecks ACHS Continue home Lantus 35 u SC in the morning ISS low ACHS Hypoglycemia protocol On ACEi for renal protection; bb/low dose ASA for cardioprotection Hx of HTN Continue Enalapril 10 mg PO BID HHD GI ppx: not indicated at this time VTE ppx: heparin 5000 u SC q12 Dispo: tele obs Case was reviewed and discussed with attending physician, Dr. Annemarie Sierra PGY1 <Gonzalo Sharpe - Last Filed: 09/26/18 06:42> Results - Vital Signs Recent Vital Signs: Last Vital Signs Temp 97.5 F L 09/26/18 04:57 Pulse 64 09/26/18 04:57 Resp 20 09/26/18 04:57 BP 120/75 09/26/18 04:57 Pulse Ox 99 09/26/18 04:57 - Labs Result Diagrams: 09/26/18 01:23 09/26/18 01:23 Labs: Laboratory Results - last 24 hr 09/26/18 09/26/18 09/26/18 01:18 01:21 01:23 WBC 8.3 D RBC 4.83 Hgb 14.4 Hct 41.5 MCV 85.8 MCH 29.9 MCHC 34.8 RDW 12.8 Plt Count 197 MPV 7.9 Neut % (Auto) 61.1 Lymph % (Auto) 28.6 [place] % (Auto) 7.4 Eos % (Auto) 2.0 Baso % (Auto) 0.9 Neut # (Auto) 5.1 Lymph # (Auto) 2.4 [place] # (Auto) 0.6 Eos # (Auto) 0.2 Baso # (Auto) 0.1 PT 9.8 INR 0.9 APTT 32 Sodium Potassium Chloride Carbon Dioxide Anion Gap BUN Creatinine Est GFR ( Amer) Est GFR (Non-Af Amer) POC Glucose (mg/dL) 94 Random Glucose Calcium Phosphorus Magnesium Total Bilirubin AST ALT Alkaline Phosphatase Troponin I NT-Pro-B Natriuret Pep Total Protein Albumin Globulin Albumin/Globulin Ratio TSH 3rd Generation 09/26/18 09/26/18 01:23 02:35 WBC RBC Hgb Hct MCV MCH MCHC RDW Plt Count MPV Neut % (Auto) Lymph % (Auto) [place] % (Auto) Eos % (Auto) Baso % (Auto) Neut # (Auto) Lymph # (Auto) [place] # (Auto) Eos # (Auto) Baso # (Auto) PT INR APTT Sodium 135 Potassium 3.1 L Chloride 103 Carbon Dioxide 23 Anion Gap 13 BUN 18 Creatinine 0.8 Est GFR ( Amer) > 60 Est GFR (Non-Af Amer) > 60 POC Glucose (mg/dL) Random Glucose 98 D Calcium 8.8 Phosphorus 1.3 L Magnesium 1.7 Total Bilirubin 0.4 AST 26 ALT 24 Alkaline Phosphatase 128 H Troponin I 0.0390 NT-Pro-B Natriuret Pep 211 Total Protein 6.7 Albumin 4.0 Globulin 2.6 Albumin/Globulin Ratio 1.5 TSH 3rd Generation 4.30 Attending/Attestation - Attestation I have personally seen and examined this patient.: Yes I have fully participated in the care of the patient.: Yes I have reviewed all pertinent clinical information: Yes Notes (Text): 09/26/18 06:39 SVT responded to single dose adenosine, low mag, phos, K, with h/o IDDM/htn, early of siblings and mother. Plan Add low dose betablock will also help if primary cause of svt turns out from CAD Echo serial trop if trop neg may get out patient stress test Cardiology evaluation this admission GI/DVt prophylaxis home meds See orders for detail.
[2018-09-26] MEDS ORDERED: Potassium Chloride 20 mEq ER Tab PO STA (04:00)
[2018-09-26] MEDS ORDERED: Magnesium Sulfate 1 gm in D5W 1 GM/100 ML BAG IVPB ONE (04:06)
[2018-09-26] MEDS ORDERED: Glucagon Recombinant 1 mg Inj IM PRN (04:06)
[2018-09-26] MEDS ORDERED: Dextrose 50% SYRINGE Inj (50 ml) IV PRN (04:06)
[2018-09-26] MEDS: (Novolin R) Insulin Human Regular 100 units/ml vial SC SCH ×4 (08:11→21:44)
[2018-09-26 08:24] LABS: CK-MB 1.73 ng/mL (0.0-3.38)
[2018-09-26 09:04] LABS: TROPONIN I 0.159 ng/mL (0.00-0.120)
[2018-09-26] MEDS: Metoprolol Succinate 25 mg XL Tab PO SCH (10:40)
[2018-09-26] MEDS: Potassium & Sodium Phosphate PO SCH ×4 (10:40→21:43)
[2018-09-26] MEDS: (Lantus) Insulin Glargine, Recombinant SC SCH (10:41)
--- NOTE | 2018-09-26 11:56 | RAD ---
HISTORY: chest pain COMPARISON: Chest x-ray performed 08/07/18 TECHNIQUE: Chest, one view. FINDINGS: LUNGS: No focal consolidation. Please note that chest x-ray has limited sensitivity for the detection of pulmonary masses. PLEURA: No significant pleural effusion identified. No definite pneumothorax . CARDIOVASCULAR: Heart size appears within normal limits. No significant atherosclerotic calcification present. OSSEOUS STRUCTURES: No acute osseous abnormality identified. VISUALIZED UPPER ABDOMEN: Unremarkable. OTHER FINDINGS: None. IMPRESSION: No focal consolidation.
[2018-09-26] MEDS ORDERED: (Novolin R) Insulin Human Regular 100 units/ml vial SC ONE (13:55)
--- NOTE | 2018-09-26 13:57 | CP.PCM.PN ---
<Eliseo Murray - Last Filed: 09/26/18 17:00> Subjective - Date & Time of Evaluation Date of Evaluation: 09/26/18 Time of Evaluation: 13:57 - Subjective Subjective: HOSPITALIST SERVICE Pt seen and examined at bedside, denies any acute events overnight, sitting comfortably in bed happy smiling, does not complain of any chest pain, palpitations, dizziness or blurry vision, these symptoms has all resolved as per pt. Pt has been notifyed of his elevated troponin and need for cardiology assessment, pt understands his current status and agrees with plan/ Objective - Vital Signs/Intake and Output Vital Signs (last 24 hours): Temp Pulse Resp BP Pulse Ox 97.6 F 64 20 118/67 98 09/26/18 08:04 09/26/18 11:58 09/26/18 08:04 09/26/18 10:40 09/26/18 08:04 Intake and Output: 09/26/18 09/26/18 06:59 18:59 Intake Total 100 Balance 100 - Medications Medications: Current Medications Aspirin (Ecotrin) 81 mg PO DAILY [facility] Last Admin: 09/26/18 10:41 Dose: 81 mg Dextrose (Dextrose 50% Inj) 0 ml IV STAT PRN; Protocol PRN Reason: Hypoglycemia Protocol Dextrose (Glutose 15) 0 gm PO ONCE PRN; Protocol PRN Reason: Hypoglycemia Protocol Enalapril Maleate (Vasotec) 10 mg PO BID [facility] Last Admin: 09/26/18 10:40 Dose: 10 mg Enoxaparin Sodium (Lovenox) 80 mg SC ONCE ONE Stop: 09/26/18 14:01 Glucagon (Glucagen Diagnostic Kit) 0 mg IM STAT PRN; Protocol PRN Reason: Hypoglycemia Protocol Dextrose (Dextrose 5% In Water 1000 Ml) 1,000 mls @ 0 mls/hr IV .Q0M PRN; Protocol PRN Reason: Hypoglycemia Protocol Influenza Virus Vaccine (Flucelvax Quad 2335-8534 Syr) 60 mcg IM .ONCE ONE Stop: 09/28/18 12:01 Insulin Glargine (Lantus) 35 unit SC QAM [facility] Last Admin: 09/26/18 10:41 Dose: 35 units Insulin Human Regular (Novolin R) 0 unit SC ACHS [facility]; Protocol Last Admin: 09/26/18 12:30 Dose: 6 units Insulin Human Regular (Novolin R) 6 unit SC STAT ONE Stop: 09/26/18 13:56 Metoprolol Succinate (Toprol Xl) 25 mg PO DAILY [facility] Last Admin: 09/26/18 10:40 Dose: 25 mg Pneumococcal Polyvalent Vaccine (Pneumovax 23 Vaccine) 0.5 ml IM .ONCE ONE Stop: 09/29/18 12:01 Potassium Phos/Sodium Phos (Neutra-Phos) 1 pkt PO QID [facility] Last Admin: 09/26/18 13:06 Dose: 1 pkt - Labs Labs: 09/26/18 01:23 09/26/18 01:23 PT 9.8 SECONDS (9.7-12.2) 09/26/18 01:21 INR 0.9 09/26/18 01:21 APTT 32 SECONDS (21-34) 09/26/18 01:21 - Constitutional Appears: Well, Non-toxic, No Acute Distress - Head Exam Head Exam: ATRAUMATIC, NORMAL INSPECTION - Eye Exam Eye Exam: EOMI, Normal appearance, PERRL Pupil Exam: NORMAL ACCOMODATION, PERRL - ENT Exam ENT Exam: Mucous Membranes Moist - Neck Exam Neck Exam: Normal Inspection. absent: Thyromegaly - Respiratory Exam Respiratory Exam: Clear to Ausculation Bilateral, NORMAL BREATHING PATTERN. absent: Wheezes - Cardiovascular Exam Cardiovascular Exam: RRR, +S1, +S2 - GI/Abdominal Exam GI & Abdominal Exam: Soft. absent: Rigid, Tenderness - Extremities Exam Extremities Exam: Normal Capillary Refill, Normal Inspection. absent: Calf Tenderness - Neurological Exam Neurological Exam: Alert, Awake, CN II-XII Intact, Oriented x3 - Psychiatric Exam Psychiatric exam: Normal Affect, Normal Mood - Skin Skin Exam: Dry, Normal Color, Warm Assessment and Plan - Assessment and Plan (Free Text) Assessment: Patient is a 53 year old male with a past medical history of HTN, IDDM2 who reports sudden onset of palpitations. Found to be in SVT in the field, medically cardioverted with Adenosine. Asymptomatic on admission. Plan: SVT, requiring medical cardioversion with SVT; r/o ischemic heart disease 2nd troponin positive, neg 3rd Toprol XL 25 QD Enalapril 10 BID ASA 81 qd Lovenox 80 sc STAT f/u Echo: Cardiology Dr Sanchez consulted f/u recs Cath tmrw CXR shows pulmonary vascular congestion; similar to prior CXR on July admission. F/u official reading EKG neg x2 F/u urine drug screen Electrolyte Abnormalities -hypokalemia, hypophosphatemia, hypomagnesemia Phosphorous to be repleted with Neutro phos 1 packet QID Potassium (3.1), 60meq given Magnesium (1.7) to be repleted with Magnesium 1g IVPB x1 Hx of IDDM2 HgbA1c is 8.6 on July 2018 admission Accuchecks ACHS Continue home Lantus 35 u SC in the morning ISS low ACHS Hypoglycemia protocol On ACEi for renal protection; bb/low dose ASA for cardioprotection Hx of HTN Continue Enalapril 10 mg PO BID [facility] GI ppx: not indicated at this time VTE ppx: heparin 5000 u SC q12 Dispo: tele obs <Seth Alanis - Last Filed: 09/29/18 19:35> Objective - Vital Signs/Intake and Output Vital Signs (last 24 hours): Temp Pulse Resp BP Pulse Ox 97.7 F 60 20 119/70 100 09/29/18 08:00 09/29/18 08:24 09/29/18 08:00 09/29/18 09:00 09/29/18 08:00 - Labs Labs: 09/29/18 05:59 09/29/18 05:59 PT 9.8 SECONDS (9.7-12.2) 09/26/18 01:21 INR 0.9 09/26/18 01:21 APTT 32 SECONDS (21-34) 09/26/18 01:21 Attending/Attestation - Attestation I have personally seen and examined this patient.: Yes I have fully participated in the care of the patient.: Yes I have reviewed all pertinent clinical information, including history, physical exam and plan: Yes Notes (Text): 09/29/18 19:35 This is a late entry. Care of this patient was gone over in detail with resident Dr. Murray. Seth Alanis D.O.
[2018-09-26] MEDS ORDERED: Enoxaparin 80 mg Syringe SC ONE (14:00)
[2018-09-26] MEDS ORDERED: Potassium Chloride 20 mEq/15 ml LIQ UD PO STA (14:08)
[2018-09-26 14:36] LABS: CK-MB 1.7 ng/mL (0.0-3.38); TROPONIN I 0.105 ng/mL (0.00-0.120)
[2018-09-26 15:05] LABS: BARBITURATES, UR NEGATIVE (NEGATIVE); BENZODIAZEPINES, UR NEGATIVE (NEGATIVE); OPIATES, UR NEGATIVE (NEGATIVE); PHENCYCLIDINE, UR NEGATIVE (NEGATIVE)
--- NOTE | 2018-09-26 17:40 | CARD ---
APPROVED REPORT Date of service: 09/26/2018 EXAM: Two-dimensional and M-mode echocardiogram with Doppler and color Doppler. INDICATION Palpitations RISK FACTORS Diabetes 2D DIMENSIONS IVSd1.1 (0.7-1.1cm)LVDd3.9 (3.9-5.9cm) PWd1.1 (0.7-1.1cm)LA Azfkip69 (18-58mL) LVDs2.2 (2.5-4.0cm)FS (%) 43.2 % LVEF (%)75.0 (>50%)LVEF (Estrella's)62.88 % M-Mode DIMENSIONS Left Atrium (MM)3.77 (2.5-4.0cm)IVSd1.15 (0.7-1.1cm) Aortic Root2.98 (2.2-3.7cm)LVDd3.94 (4.0-5.6cm) Aortic Cusp Exc.2.05 (1.5-2.0cm)PWd0.98 (0.7-1.1cm) FS (%) 44 %LVDs2.20 (2.0-3.8cm) LVEF (%)76 (>50%) Mitral Valve MV E Mwvteeim53.6cm/sMV A Pzttldkk39.7cm/sE/A ratio1.4 TDI Lateral E' Peak V11.26cm/sMedial E' Peak V6.16cm/sE/Lateral E'5.5 E/Medial E'10.0 Tricuspid Valve TR Peak Jowgmffk817ef/sTR Peak Gr.[id number] LEFT VENTRICLE The left ventricle is normal size. There is normal left ventricular wall thickness. The left ventricular function is normal. The left ventricular ejection fraction is within the normal range. There is normal LV segmental wall motion. The left ventricular diastolic function is normal. RIGHT VENTRICLE The right ventricle is normal size. The right ventricular systolic function is normal. ATRIA The left atrium size is normal. The right atrium size is normal. The interatrial septum is intact with no evidence for an atrial septal defect. AORTIC VALVE The aortic valve is normal in structure. No aortic regurgitation is present. There is no aortic valvular stenosis. MITRAL VALVE The mitral valve is normal in structure. There is no mitral valve regurgitation noted. TRICUSPID VALVE The tricuspid valve is normal in structure. There is trace tricuspid regurgitation. PULMONIC VALVE The pulmonary valve is normal in structure. There is trace pulmonic valvular regurgitation. GREAT VESSELS The aortic root is normal in size. The IVC is normal in size and collapses >50% with inspiration. PERICARDIAL EFFUSION There is no pericardial effusion. <Conclusion> Normal bi-ventricular function. No valvular abnormality. No pericardial effusion.
--- NOTE | 2018-09-27 07:18 | CP.PCM.CON ---
History of Present Illness - History of Present Illness History of Present Illness: CC chest pain HPI Patient is a 53 year old male with a past medical history of HTN, IDDM2 who reports sudden onset of palpitations at 8 pm on 09/25/18. Pt reports balta he was watching TV, when he felt a "punch" in the left side of his chest and proceeded to have palpitations. He denies any other chest pain other than that initial "punch," but reports that these palpitations were constant and associated with lightheadedness, dizziness, nausea, and some blurry vision. He called 911, and HR was noted to be in the 180s by EMS, and they proceeded to give Adenosine which stopped all symptoms. Past Patient History - Past Medical History & Family History Past Medical History?: Yes - Past Social History Smoking Status: Former Smoker - CARDIAC Hx Hypertension: Yes - PULMONARY Hx Respiratory Disorders: No - NEUROLOGICAL Hx Neurological Disorder: No - HEENT Hx HEENT Problems: No - RENAL Hx Chronic Kidney Disease: No - ENDOCRINE/METABOLIC Hx Diabetes Mellitus Type 2: Yes - HEMATOLOGICAL/ONCOLOGICAL Hx Blood Disorders: No - INTEGUMENTARY Hx Dermatological Problems: No - MUSCULOSKELETAL/RHEUMATOLOGICAL Hx Musculoskeletal Disorders: No Hx Falls: No - GASTROINTESTINAL Hx Gastrointestinal Disorders: No - GENITOURINARY/GYNECOLOGICAL Hx Genitourinary Disorders: No - PSYCHIATRIC Hx Substance Use: No - SURGICAL HISTORY Hx Appendectomy: Yes - ANESTHESIA Hx Anesthesia: Yes Hx Anesthesia Reactions: No Meds Allergies/Adverse Reactions: Allergies Allergy/AdvReac Type Severity Reaction Status Date / Time No Known Allergies Allergy Verified 09/26/18 01:14 - Medications Medications: Current Medications Aspirin (Ecotrin) 81 mg PO DAILY [facility] Last Admin: 09/26/18 10:41 Dose: 81 mg Dextrose (Dextrose 50% Inj) 0 ml IV STAT PRN; Protocol PRN Reason: Hypoglycemia Protocol Dextrose (Glutose 15) 0 gm PO ONCE PRN; Protocol PRN Reason: Hypoglycemia Protocol Enalapril Maleate (Vasotec) 10 mg PO BID [facility] Last Admin: 09/26/18 17:13 Dose: 10 mg Glucagon (Glucagen Diagnostic Kit) 0 mg IM STAT PRN; Protocol PRN Reason: Hypoglycemia Protocol Dextrose (Dextrose 5% In Water 1000 Ml) 1,000 mls @ 0 mls/hr IV .Q0M PRN; Protocol PRN Reason: Hypoglycemia Protocol Influenza Virus Vaccine (Flucelvax Quad 0895-3239 Syr) 60 mcg IM .ONCE ONE Stop: 09/28/18 12:01 Insulin Glargine (Lantus) 35 unit SC QAM [facility] Last Admin: 09/26/18 10:41 Dose: 35 units Insulin Human Regular (Novolin R) 0 unit SC ACHS [facility]; Protocol Last Admin: 09/26/18 21:44 Dose: Not Given Metoprolol Succinate (Toprol Xl) 25 mg PO DAILY [facility] Last Admin: 09/26/18 10:40 Dose: 25 mg Pneumococcal Polyvalent Vaccine (Pneumovax 23 Vaccine) 0.5 ml IM .ONCE ONE Stop: 09/29/18 12:01 Potassium Phos/Sodium Phos (Neutra-Phos) 1 pkt PO QID [facility] Last Admin: 09/26/18 21:43 Dose: 1 pkt Physical Exam - Constitutional Appears: Non-toxic - Head Exam Head Exam: NORMAL INSPECTION - Eye Exam Eye Exam: absent: Scleral icterus - ENT Exam ENT Exam: Mucous Membranes Moist - Neck Exam Neck exam: Negative for: Lymphadenopathy - Respiratory Exam Respiratory Exam: Decreased Breath Sounds - Cardiovascular Exam Cardiovascular Exam: REGULAR RHYTHM - GI/Abdominal Exam GI & Abdominal Exam: Soft - Extremities Exam Extremities exam: Negative for: pedal edema - Neurological Exam Neurological exam: Alert, Oriented x3 Results - Vital Signs Recent Vital Signs: Last Vital Signs Temp 97.8 F 09/26/18 23:15 Pulse 54 L 09/26/18 23:15 Resp 20 09/26/18 23:15 BP 124/74 09/26/18 23:15 Pulse Ox 99 09/26/18 23:15 - Labs Result Diagrams: 09/26/18 01:23 09/26/18 01:23 Labs: Laboratory Results - last 24 hr 09/26/18 09/26/18 09/26/18 07:18 07:23 11:38 POC Glucose (mg/dL) 138 H 419 H* Total Creatine Kinase 188 H CK-MB (Mass) 1.73 Troponin I 0.1590 H* Urine Opiates Screen Urine Methadone Screen Ur Barbiturates Screen Ur Phencyclidine Scrn Ur Amphetamines Screen U Benzodiazepines Scrn U Oth Cocaine Metabols U Cannabinoids Screen 09/26/18 09/26/18 09/26/18 11:39 14:07 14:23 POC Glucose (mg/dL) 422 H* Total Creatine Kinase 157 CK-MB (Mass) 1.70 Troponin I 0.1050 Urine Opiates Screen Negative Urine Methadone Screen Negative Ur Barbiturates Screen Negative Ur Phencyclidine Scrn Negative Ur Amphetamines Screen Negative U Benzodiazepines Scrn Negative U Oth Cocaine Metabols Negative U Cannabinoids Screen Negative 09/26/18 09/26/18 09/27/18 16:17 21:26 06:43 POC Glucose (mg/dL) 331 H 345 H 364 H Total Creatine Kinase CK-MB (Mass) Troponin I Urine Opiates Screen Urine Methadone Screen Ur Barbiturates Screen Ur Phencyclidine Scrn Ur Amphetamines Screen U Benzodiazepines Scrn U Oth Cocaine Metabols U Cannabinoids Screen Assessment & Plan - Assessment and Plan (Free Text) Assessment: ACS SVT Plan: Trops Echo Lexiscan - if abnormal, cardiac cath
[2018-09-27] MEDS ORDERED: Caffeine Citrated **INJ** 20 MG/ML IV ONE (07:31)
[2018-09-27] MEDS: (Novolin R) Insulin Human Regular 100 units/ml vial SC SCH ×4 (10:07→21:30)
[2018-09-27] MEDS: (Lantus) Insulin Glargine, Recombinant SC SCH (10:08)
[2018-09-27] MEDS: Potassium & Sodium Phosphate PO SCH ×4 (10:10→21:33)
[2018-09-27] MEDS: Metoprolol Succinate 25 mg XL Tab PO SCH (10:10)
--- NOTE | 2018-09-27 10:39 | CP.PCM.PN ---
<Eliseo Murray - Last Filed: 09/27/18 16:54> Subjective - Date & Time of Evaluation Date of Evaluation: 09/27/18 Time of Evaluation: 14:52 - Subjective Subjective: HOSPITALIST SERVICE Pt s/e at bedside, complains of uncontrolled sugars, says hes supposed to take his lantus before breakfast. Pt tolerated stress test well, going for cath tmrw. denies cp sob fc nv. Objective - Vital Signs/Intake and Output Vital Signs (last 24 hours): Temp Pulse Resp BP Pulse Ox 97.9 F 111 H 20 118/71 96 09/27/18 09:47 09/27/18 09:47 09/27/18 09:47 09/27/18 10:10 09/27/18 09:47 Intake and Output: 09/27/18 09/27/18 06:59 18:59 Intake Total 0 Balance 0 - Medications Medications: Current Medications Aspirin (Ecotrin) 81 mg PO DAILY [facility] Last Admin: 09/27/18 10:10 Dose: 81 mg Dextrose (Dextrose 50% Inj) 0 ml IV STAT PRN; Protocol PRN Reason: Hypoglycemia Protocol Dextrose (Glutose 15) 0 gm PO ONCE PRN; Protocol PRN Reason: Hypoglycemia Protocol Enalapril Maleate (Vasotec) 10 mg PO BID [facility] Last Admin: 09/27/18 10:10 Dose: 10 mg Glucagon (Glucagen Diagnostic Kit) 0 mg IM STAT PRN; Protocol PRN Reason: Hypoglycemia Protocol Dextrose (Dextrose 5% In Water 1000 Ml) 1,000 mls @ 0 mls/hr IV .Q0M PRN; Protocol PRN Reason: Hypoglycemia Protocol Influenza Virus Vaccine (Flucelvax Quad 5220-9262 Syr) 60 mcg IM .ONCE ONE Stop: 09/28/18 12:01 Insulin Glargine (Lantus) 35 unit SC QAM [facility] Last Admin: 09/27/18 10:08 Dose: 35 units Insulin Human Regular (Novolin R) 0 unit SC ACHS [facility]; Protocol Last Admin: 09/27/18 10:07 Dose: 5 units Metoprolol Succinate (Toprol Xl) 25 mg PO DAILY [facility] Last Admin: 09/27/18 10:10 Dose: 25 mg Pneumococcal Polyvalent Vaccine (Pneumovax 23 Vaccine) 0.5 ml IM .ONCE ONE Stop: 09/29/18 12:01 Potassium Phos/Sodium Phos (Neutra-Phos) 1 pkt PO QID [facility] Last Admin: 09/27/18 10:10 Dose: 1 pkt - Labs Labs: 09/26/18 01:23 09/26/18 01:23 PT 9.8 SECONDS (9.7-12.2) 09/26/18 01:21 INR 0.9 09/26/18 01:21 APTT 32 SECONDS (21-34) 09/26/18 01:21 - Additional Findings Additional findings: - Constitutional Appears: Well, Non-toxic, No Acute Distress - Head Exam Head Exam: ATRAUMATIC, NORMAL INSPECTION - Eye Exam Eye Exam: EOMI, Normal appearance, PERRL Pupil Exam: NORMAL ACCOMODATION, PERRL - ENT Exam ENT Exam: Mucous Membranes Moist - Neck Exam Neck Exam: Normal Inspection. absent: Thyromegaly - Respiratory Exam Respiratory Exam: Clear to Ausculation Bilateral, NORMAL BREATHING PATTERN. absent: Wheezes - Cardiovascular Exam Cardiovascular Exam: RRR, +S1, +S2 - GI/Abdominal Exam GI & Abdominal Exam: Soft. absent: Rigid, Tenderness - Extremities Exam Extremities Exam: Normal Capillary Refill, Normal Inspection. absent: Calf Tenderness - Neurological Exam Neurological Exam: Alert, Awake, CN II-XII Intact, Oriented x3 - Psychiatric Exam Psychiatric exam: Normal Affect, Normal Mood - Skin Skin Exam: Dry, Normal Color, Warm Assessment and Plan - Assessment and Plan (Free Text) Assessment: Patient is a 53 year old male with a past medical history of HTN, IDDM2 who reports sudden onset of palpitations. Found to be in SVT in the field, medically cardioverted with Adenosine. Asymptomatic on admission. Plan: SVT, requiring medical cardioversion with SVT; r/o ischemic heart disease 2nd troponin positive, neg 3rd Toprol XL 25 QD Enalapril 10 BID ASA 81 qd Lovenox 80 sc STAT Echo: EF 75% Cardiology Dr Sanchez consulted f/u recs normal stress test Cath tmrw- diagnostic CXR shows pulmonary vascular congestion; similar to prior CXR on July admission. F/u official reading EKG neg x2 neg urine drug screen Electrolyte Abnormalities -hypokalemia, hypophosphatemia, hypomagnesemia Phosphorous to be repleted with Neutro phos 1 packet QID Potassium (3.1), 60meq given Magnesium (1.7) to be repleted with Magnesium 1g IVPB x1 Hx of IDDM2 HgbA1c is 8.6 on July 2018 admission Accuchecks ACHS Continue home Lantus 35 u SC in the morning 8am before breakfast ISS low ACHS Hypoglycemia protocol On ACEi for renal protection; bb/low dose ASA for cardioprotection Hx of HTN Continue Enalapril 10 mg PO BID [facility] GI ppx: not indicated at this time VTE ppx: heparin 5000 u SC q12 <Seth Alanis - Last Filed: 09/29/18 19:34> Objective - Vital Signs/Intake and Output Vital Signs (last 24 hours): Temp Pulse Resp BP Pulse Ox 97.7 F 60 20 119/70 100 09/29/18 08:00 09/29/18 08:24 09/29/18 08:00 09/29/18 09:00 09/29/18 08:00 - Labs Labs: 09/29/18 05:59 09/29/18 05:59 PT 9.8 SECONDS (9.7-12.2) 09/26/18 01:21 INR 0.9 09/26/18 01:21 APTT 32 SECONDS (21-34) 09/26/18 01:21 Attending/Attestation - Attestation I have personally seen and examined this patient.: Yes I have fully participated in the care of the patient.: Yes I have reviewed all pertinent clinical information, including history, physical exam and plan: Yes Notes (Text): 09/29/18 19:34 This is a late entry. Care of this patient was gone over in detail with resident Dr. Murray. Seth Alanis D.O.
[2018-09-27 11:57] LABS: BASO # 0.1 K/uL (0.0-0.2); BASO % 1.1 % (0.0-2.0); EOS # 0.2 K/uL (0.0-0.7); EOS % 2.2 % (0.0-4.0); HEMOGLOBIN 14.3 g/dL (12.0-18.0); LYMPH # 2.2 K/uL (1.0-4.3); LYMPH % 28.1 % (20.0-40.0); MEAN CELL VOLUME 87.6 fL (80.0-94.0); MEAN CORPUSCULAR HEMOGLOBIN 29.8 pg (27.0-31.0); MEAN PLATELET VOLUME 8.3 fL (7.2-11.7); MONO # 0.6 K/uL (0.0-0.8); MONO % 7.1 % (0.0-10.0); NEUT # 4.8 K/uL (1.8-7.0); NEUT % 61.5 % (50.0-75.0); RBC 4.79 Mil/uL (4.40-5.90); RED CELL DISTRIBUTION WIDTH 12.7 % (11.5-14.5); WHITE BLOOD COUNT 7.8 K/uL (4.8-10.8)
[2018-09-27 12:33] LABS: ALB/GLOB RATIO 1.6 (1.0-2.1); ALBUMIN 4.2 g/dL (3.5-5.0); ALT/SGPT 28 U/L (21-72); AST/SGOT 23 U/L (17-59); BLOOD UREA NITROGEN 19 mg/dL (9-20); CALCIUM 9.2 mg/dl (8.6-10.4); GFR NON-AFRICAN AMERICAN > 60
[2018-09-27] MEDS ORDERED: (Novolin R) Insulin Human Regular 100 units/ml vial SC ONE (14:51)
[2018-09-27] MEDS ORDERED: (Lantus) Insulin Glargine, Recombinant SC SCH (14:51)
[2018-09-28] MEDS ORDERED: Caffeine Citrated **INJ** 20 MG/ML IV ONE (07:32)
[2018-09-28] MEDS: (Lantus) Insulin Glargine, Recombinant SC SCH ×2 (07:36→10:08)
[2018-09-28 07:48] LABS: BASO # 0.1 K/uL (0.0-0.2); BASO % 1.2 % (0.0-2.0); EOS # 0.2 K/uL (0.0-0.7); HEMOGLOBIN 13.4 g/dL (12.0-18.0); LYMPH # 1.8 K/uL (1.0-4.3); LYMPH % 28.6 % (20.0-40.0); MEAN CELL VOLUME 86.5 fL (80.0-94.0); MEAN CORPUSCULAR HGB CONC 34.7 g/dL (33.0-37.0); MEAN PLATELET VOLUME 8.1 fL (7.2-11.7); MONO # 0.6 K/uL (0.0-0.8); MONO % 9.6 % (0.0-10.0); NEUT # 3.7 K/uL (1.8-7.0); NEUT % 57.6 % (50.0-75.0); RBC 4.47 Mil/uL (4.40-5.90); RED CELL DISTRIBUTION WIDTH 12.8 % (11.5-14.5); WHITE BLOOD COUNT 6.4 K/uL (4.8-10.8)
[2018-09-28] MEDS ORDERED: (Lantus) Insulin Glargine, Recombinant SC SCH (08:00)
[2018-09-28 08:16] LABS: ALB/GLOB RATIO 1.5 (1.0-2.1); ALBUMIN 3.8 g/dL (3.5-5.0); ALT/SGPT 21 U/L (21-72); AST/SGOT 22 U/L (17-59); BLOOD UREA NITROGEN 21 mg/dL (9-20); CALCIUM 8.9 mg/dl (8.6-10.4); GFR NON-AFRICAN AMERICAN > 60
[2018-09-28] MEDS: Potassium & Sodium Phosphate PO SCH ×4 (09:51→21:30)
[2018-09-28] MEDS: (Novolin R) Insulin Human Regular 100 units/ml vial SC SCH ×5 (09:52→21:30)
[2018-09-28] MEDS: Metoprolol Succinate 25 mg XL Tab PO SCH (10:05)
[2018-09-28] MEDS: Metoprolol Succinate 12.5 mg XL Tab PO SCH (10:09)
[2018-09-28] MEDS ORDERED: Influenza Vaccine 60 mcg/0.5 mL SYR (4YR UP) IM ONE (12:00)
--- NOTE | 2018-09-28 13:55 | CP.PCM.PN ---
<Eliseo Murray - Last Filed: 09/28/18 17:12> Subjective - Date & Time of Evaluation Date of Evaluation: 09/28/18 Time of Evaluation: 13:51 - Subjective Subjective: HOSPITALIST SERVICE Pt is seen and examined at bedside, pending results of lexicon stress test, possible cath this afternoon, pt understands this and is waiting for results. Pt has no complaints overnight.denies cp sob fc nv palps Objective - Vital Signs/Intake and Output Vital Signs (last 24 hours): Temp Pulse Resp BP Pulse Ox 97.8 F 55 L 20 124/79 99 09/28/18 08:13 09/28/18 08:13 09/28/18 08:13 09/28/18 09:53 09/28/18 08:13 Intake and Output: 09/28/18 09/28/18 06:59 18:59 Intake Total 240 Output Total 400 Balance -160 - Medications Medications: Current Medications Aspirin (Ecotrin) 81 mg PO DAILY [facility] Last Admin: 09/28/18 09:53 Dose: 81 mg Dextrose (Dextrose 50% Inj) 0 ml IV STAT PRN; Protocol PRN Reason: Hypoglycemia Protocol Dextrose (Glutose 15) 0 gm PO ONCE PRN; Protocol PRN Reason: Hypoglycemia Protocol Enalapril Maleate (Vasotec) 10 mg PO BID [facility] Last Admin: 09/28/18 09:53 Dose: 10 mg Glucagon (Glucagen Diagnostic Kit) 0 mg IM STAT PRN; Protocol PRN Reason: Hypoglycemia Protocol Dextrose (Dextrose 5% In Water 1000 Ml) 1,000 mls @ 0 mls/hr IV .Q0M PRN; Protocol PRN Reason: Hypoglycemia Protocol Insulin Glargine (Lantus) 35 unit SC QAM [facility] Last Admin: 09/28/18 10:08 Dose: Not Given Insulin Human Regular (Novolin R) 0 unit SC ACHS [facility]; Protocol Last Admin: 09/28/18 12:30 Dose: Not Given Metoprolol Succinate (Toprol Xl) 25 mg PO DAILY [facility] Last Admin: 09/28/18 10:09 Dose: 25 mg Pneumococcal Polyvalent Vaccine (Pneumovax 23 Vaccine) 0.5 ml IM .ONCE ONE Stop: 09/29/18 12:01 Potassium Phos/Sodium Phos (Neutra-Phos) 1 pkt PO QID [facility] Last Admin: 09/28/18 13:32 Dose: 1 pkt - Labs Labs: 09/28/18 07:03 09/28/18 07:03 PT 9.8 SECONDS (9.7-12.2) 09/26/18 01:21 INR 0.9 09/26/18 01:21 APTT 32 SECONDS (21-34) 09/26/18 01:21 Assessment and Plan - Assessment and Plan (Free Text) Assessment: Patient is a 53 year old male with a past medical history of HTN, IDDM2 who reports sudden onset of palpitations. Found to be in SVT in the field, medically cardioverted with Adenosine. Asymptomatic on admission. Plan: SVT, requiring medical cardioversion with SVT; r/o ischemic heart disease 2nd troponin positive, neg 3rd Toprol XL 25 QD Enalapril 10 BID ASA 81 qd Lovenox 80 sc STAT Echo: EF 75% Cardiology Dr Sanchez consulted f/u recs normal stress test pending results of lexicon stress test possible f/u cath tomorrow 730AM if abnormal CXR shows pulmonary vascular congestion; similar to prior CXR on July admission. F/u official reading EKG neg x2 neg urine drug screen Electrolyte Abnormalities -hypokalemia, hypophosphatemia, hypomagnesemia Phosphorous to be repleted with Neutro phos 1 packet QID Potassium (3.1), 60meq given Magnesium (1.7) to be repleted with Magnesium 1g IVPB x1 Hx of IDDM2 HgbA1c is 8.6 on July 2018 admission Accuchecks ACHS Continue home Lantus 35 u SC in the morning 8am before breakfast ISS low ACHS Hypoglycemia protocol On ACEi for renal protection; bb/low dose ASA for cardioprotection Hx of HTN Continue Enalapril 10 mg PO BID HHD GI ppx: not indicated at this time VTE ppx: heparin 5000 u SC q12 <Seth Alanis - Last Filed: 09/29/18 09:42> Objective - Vital Signs/Intake and Output Vital Signs (last 24 hours): Temp Pulse Resp BP Pulse Ox 97.7 F 60 20 119/70 100 09/29/18 08:00 09/29/18 08:24 09/29/18 08:00 09/29/18 09:00 09/29/18 08:00 - Medications Medications: Current Medications Aspirin (Ecotrin) 81 mg PO DAILY [facility] Last Admin: 09/29/18 09:00 Dose: 81 mg Dextrose (Dextrose 50% Inj) 0 ml IV STAT PRN; Protocol PRN Reason: Hypoglycemia Protocol Dextrose (Glutose 15) 0 gm PO ONCE PRN; Protocol PRN Reason: Hypoglycemia Protocol Enalapril Maleate (Vasotec) 10 mg PO BID [facility] Last Admin: 09/29/18 09:00 Dose: 10 mg Glucagon (Glucagen Diagnostic Kit) 0 mg IM STAT PRN; Protocol PRN Reason: Hypoglycemia Protocol Dextrose (Dextrose 5% In Water 1000 Ml) 1,000 mls @ 0 mls/hr IV .Q0M PRN; Protocol PRN Reason: Hypoglycemia Protocol Insulin Glargine (Lantus) 35 unit SC QAM [facility] Last Admin: 09/29/18 09:00 Dose: 35 units Insulin Human Regular (Novolin R) 0 unit SC ACHS [facility]; Protocol Last Admin: 09/29/18 08:30 Dose: 1 units Metoprolol Succinate (Toprol Xl) 25 mg PO DAILY [facility] Last Admin: 09/29/18 09:02 Dose: Not Given Pneumococcal Polyvalent Vaccine (Pneumovax 23 Vaccine) 0.5 ml IM .ONCE ONE Stop: 09/29/18 12:01 Potassium Phos/Sodium Phos (Neutra-Phos) 1 pkt PO QID [facility] Last Admin: 09/29/18 09:00 Dose: 1 pkt - Labs Labs: 09/29/18 05:59 09/29/18 05:59 PT 9.8 SECONDS (9.7-12.2) 09/26/18 01:21 INR 0.9 09/26/18 01:21 APTT 32 SECONDS (21-34) 09/26/18 01:21 Attending/Attestation - Attestation I have personally seen and examined this patient.: Yes I have fully participated in the care of the patient.: Yes I have reviewed all pertinent clinical information, including history, physical exam and plan: Yes Notes (Text): 09/29/18 09:31 Patient was seen and examined at 9:15 AM. Care of this patient was gone over in detail with resident Dr. Murray. Currently upon FULL ROS: Some lower anterior right arm soreness distal to the IV access NO other complaints upon FULL ROS HEENT, Cardio, Resp, GI, Ext, CN II through XII exams were uremarkable. Spoke with Computer Applications Engineer Dr. Sanchez this morning: Lexiscan Stress Test was normal and therefore cardiac catheterization was cancelled. Will need outpatient Cardiology follow up. The following instructions were gone over with the patient through the use of Nepali Interpretor Service provided by [employer] (Марина [id number]): 1). Schedule follow up with Primary Care Physician Dr. Rockwell to take place in the next 7 days. 2). Through Dr. Rockwell obtain further evaluation by a Computer Applications Engineer for your rapid heart rate which at the time of your discharge had resolved. 3). You stated that you had enough of the Lantus Insulin at home as provided by Dr. Rockwell. Please continue to use as instructed by Dr. Rockwell. 4). The following 2 prescriptions were sent to your [facility] located at [address] [place] [address] in [place], [place] as requested by you. Please use as directed: Metoprolol Succinate 25 mg, 1 tablet by mouth 1x/day (2 PM), Dispense #30, NO refills Enalapril 10 mg, 1 tablet by mouth 2x/day (8 AM and 8 PM), Dispense #60, NO refills 5). Please be careful of your coffee and caffeine intake 6). Please take care and be well. Seth Alanis D.O.
--- NOTE | 2018-09-28 15:57 | CARD ---
APPROVED REPORT Date of service: 09/26/2018 EKG Measurement Heart [id number] [id number] <Conclusion> Normal sinus rhythm Normal ECG
--- NOTE | 2018-09-28 15:57 | CARD ---
APPROVED REPORT Date of service: 09/26/2018 EKG Measurement Heart [id number] [place] [id number] <Conclusion> Normal sinus rhythm Nonspecific T wave abnormality Abnormal ECG
--- NOTE | 2018-09-28 17:54 | CARD ---
APPROVED REPORT Date of service: 09/28/2018 Protocol: LEXISCAN Test Type: LEXISCAN STRESS Test Indications: CP Medications: LIST Medical History: CP Target HR: 167 bpm Resting ECG: normal Resting Heart Rate: 58 bpm Resting Blood Pressure: 126/80mmHg submaximum (85%): 142 bpm TEST SUMMARY JYUNYOORCILBQJ84:02..1.059/.0. PREINFSNHYPERV.05:520.00.01.282207/80.0. INFUSIONDOSE 100:300.00.01.062/.0. QTLUJEFLX36:[id number]/80.0. PROCEDURE Pharmacologic stress testing was performed using 0.4mg per 5ml of regadenoson given intravenously over 7-10 seconds. POST EXERCISE Reason for Termination: Protocol Completed Target HR: No Max HR: 62 bpm 62% of Maximum Predicted HR: 167 bpm Exercise duration: 00:30 min:sec, 0 Stage Exercise capacity: 1.0METs Max Blood Pressure: 126/80mmHg Blood Pressure response to exercise: normal resting BP - appropriate response Heart Rate response to exercise: appropriate Chest Pain: No, none Angina index: 0 Arrhythmia: No, none ST Change: No, none Deviation: 0 mm INTERPRETATION Stress EKG Conclusion: NEGATIVE LEXISCAN STRESS TEST NORMAL BP RESPONSE TO LEXISCAN NUCLEAR STUDIES TO BE READ SEPARATELY EXAM: Myocardial Perfusion REST/STRESS Imaging Protocol The imaging protocol used to acquire images was Rest Tc-99m/stress Tc-99m 2 days Rest Spect myocardial perfusion imaging was performed in supine position 42 minutes following the injection of 14.5 mCi of Tc-99 Myoview. Gated Stress Spect was performed 45 minutes after intravenous 32.9 mCi Tc-99 Myoview injection. The images were gated to evaluate regional wall motion and calculate ventricular ejection fraction.Images were reconstructed using backfilter projection method in short horizontal and verticle long axis. Spect slices were generated. RESTING DATA EDV66.05syTY9.20L/min ESV10.00mlMyocardial Eftd726.00g Av. Heart Rate57.00bpm EF85.00% STRESS DATA EDV77.08odPD3.30L/min ESV22.00mlMyocardial Pdlb839.00g EF71.00% Regional WT score at stress:0.00 Regional WM score at stress:0.00 Summed WT score at stress:8.00 Av. Heart Rate60.00bpmSummed WM score at stress:1.00 LV Perf. Quant 17 Seg. SSS0.00 17 Seg. SRS0.00 17 Seg. SDS0.00 Stress Defect Extent (% LAD)0.00Rest Defect Extent (% LAD)0.00Rev. Defect Extent (% LAD)0.00 Stress Defect Extent (% LCX)0.00Rest Defect Extent (% LCX)0.00Rev. Defect Extent (% LCX)0.00 Stress Defect Extent (% RCA)0.00Rest Defect Extent (% RCA)0.00Rev. Defect Extent (% RCA)0.00 Stress Defect Extent (% ABDOULAYE)0.00Rest Defect Extent (% ABDOULAYE)0.00Rev. Defect Extent (% ABDOULAYE)0.00 IMPRESSION Normal Myocardial Perfusion exercise stress study Left Ventricle LV Function:Left ventricle systolic function is normal. The Ejection Fraction is >70%. Regional Wall Motion:No regional wall motion abnormalities noted. Metabolism/Perfusion Defects: There is no stress-induced ischemia noted. There are no perfusion/metabolism defects. Conclusion 1. There is no stress-induced ischemia noted. 2. Left ventricle systolic function is normal. 3. The Ejection Fraction is >70%.
[2018-09-29 06:04] LABS: BASO # 0.1 K/uL (0.0-0.2); BASO % 1.2 % (0.0-2.0); EOS # 0.2 K/uL (0.0-0.7); EOS % 3.4 % (0.0-4.0); HEMOGLOBIN 13.3 g/dL (12.0-18.0); LYMPH # 2.3 K/uL (1.0-4.3); LYMPH % 34.2 % (20.0-40.0); MEAN CELL VOLUME 86.9 fL (80.0-94.0); MEAN CORPUSCULAR HEMOGLOBIN 30.3 pg (27.0-31.0); MEAN CORPUSCULAR HGB CONC 34.9 g/dL (33.0-37.0); MEAN PLATELET VOLUME 7.9 fL (7.2-11.7); MONO # 0.7 K/uL (0.0-0.8); MONO % 10.4 % (0.0-10.0); NEUT # 3.5 K/uL (1.8-7.0); NEUT % 50.8 % (50.0-75.0); NRBC % 0.1 % (0.0-2.0); RBC 4.4 Mil/uL (4.40-5.90); RED CELL DISTRIBUTION WIDTH 13.1 % (11.5-14.5); WHITE BLOOD COUNT 6.9 K/uL (4.8-10.8)
[2018-09-29 06:32] LABS: ALB/GLOB RATIO 1.5 (1.0-2.1); ALBUMIN 3.7 g/dL (3.5-5.0); ALT/SGPT 25 U/L (21-72); AST/SGOT 22 U/L (17-59); BLOOD UREA NITROGEN 17 mg/dL (9-20); CALCIUM 8.9 mg/dl (8.6-10.4); GFR NON-AFRICAN AMERICAN > 60
[2018-09-29 08:30] VITALS: PULSE 60
[2018-09-29] MEDS: (Novolin R) Insulin Human Regular 100 units/ml vial SC SCH (08:30)
[2018-09-29 08:44] VITALS: TEMP 97.7; O2SAT 100
[2018-09-29] MEDS: (Lantus) Insulin Glargine, Recombinant SC SCH (09:00)
[2018-09-29] MEDS: Potassium & Sodium Phosphate PO SCH (09:00)
[2018-09-29 09:01] VITALS: BP 119/70
[2018-09-29] MEDS: Metoprolol Succinate 12.5 mg XL Tab PO SCH (09:02)
--- NOTE | 2018-09-29 11:05 | CP.PCM.DIS ---
Provider - Provider Date of Admission: 09/26/18 02:07 Attending physician: Gonzalo Sharpe MD Consults: 09/26/18 13:56 Cardiology Consult Routine Comment: Consulting Provider: Gene Sanhcez Consulting Physician: Gene Sanchez Reason for Consult: SVT and Elevated Troponin. 2 CAD Risk Factors: Age & DM Time Spent in preparation of Discharge (in minutes): 45 Diagnosis - Discharge Diagnosis (1) Elevated troponin Status: Resolved (2) Chest pain Status: Resolved (3) Diabetes Status: Chronic (4) HTN (hypertension) Status: Chronic (5) SVT (supraventricular tachycardia) Status: Resolved Hospital Course - Lab Results Lab Results: Most Recent Lab Values WBC 6.9 K/uL (4.8-10.8) 09/29/18 05:59 RBC 4.40 Mil/uL (4.40-5.90) 09/29/18 05:59 Hgb 13.3 g/dL (12.0-18.0) 09/29/18 05:59 Hct 38.2 % (35.0-51.0) 09/29/18 05:59 MCV 86.9 fL (80.0-94.0) 09/29/18 05:59 MCH 30.3 pg (27.0-31.0) 09/29/18 05:59 MCHC 34.9 g/dL (33.0-37.0) 09/29/18 05:59 RDW 13.1 % (11.5-14.5) 09/29/18 05:59 Plt Count 180 K/uL (130-400) 09/29/18 05:59 MPV 7.9 fL (7.2-11.7) 09/29/18 05:59 Neut % (Auto) 50.8 % (50.0-75.0) 09/29/18 05:59 Lymph % (Auto) 34.2 % (20.0-40.0) 09/29/18 05:59 [place] % (Auto) 10.4 % (0.0-10.0) H 09/29/18 05:59 Eos % (Auto) 3.4 % (0.0-4.0) 09/29/18 05:59 Baso % (Auto) 1.2 % (0.0-2.0) 09/29/18 05:59 Neut # (Auto) 3.5 K/uL (1.8-7.0) 09/29/18 05:59 Lymph # (Auto) 2.3 K/uL (1.0-4.3) 09/29/18 05:59 [place] # (Auto) 0.7 K/uL (0.0-0.8) 09/29/18 05:59 Eos # (Auto) 0.2 K/uL (0.0-0.7) 09/29/18 05:59 Baso # (Auto) 0.1 K/uL (0.0-0.2) 09/29/18 05:59 PT 9.8 SECONDS (9.7-12.2) 09/26/18 01:21 INR 0.9 09/26/18 01:21 APTT 32 SECONDS (21-34) 09/26/18 01:21 Sodium 136 mmol/L (132-148) 09/29/18 05:59 Potassium 3.8 mmol/L (3.6-5.2) 09/29/18 05:59 Chloride 102 mmol/L (98-107) 09/29/18 05:59 Carbon Dioxide 29 mmol/L (22-30) 09/29/18 05:59 Anion Gap 8 (10-20) L 09/29/18 05:59 BUN 17 mg/dL (9-20) 09/29/18 05:59 Creatinine 0.8 mg/dL (0.8-1.5) 09/29/18 05:59 Est GFR ( Amer) > 60 09/29/18 05:59 Est GFR (Non-Af Amer) > 60 09/29/18 05:59 POC Glucose (mg/dL) 172 mg/dL (65-110) H 09/29/18 06:36 Random Glucose 175 mg/dL (75-110) H D 09/29/18 05:59 Calcium 8.9 mg/dl (8.6-10.4) 09/29/18 05:59 Phosphorus 5.2 mg/dL (2.5-4.5) H 09/29/18 05:59 Magnesium 1.8 mg/dL (1.6-2.3) 09/29/18 05:59 Total Bilirubin 0.2 mg/dL (0.2-1.3) 09/29/18 05:59 AST 22 U/L (17-59) 09/29/18 05:59 ALT 25 U/L (21-72) 09/29/18 05:59 Alkaline Phosphatase 117 U/L (38-126) 09/29/18 05:59 Total Creatine Kinase 157 U/L (55-170) 09/26/18 14:07 CK-MB (Mass) 1.70 ng/mL (0.0-3.38) 09/26/18 14:07 Troponin I 0.1050 ng/mL (0.00-0.120) 09/26/18 14:07 NT-Pro-B Natriuret Pep 211 pg/mL (0-900) 09/26/18 01:23 Total Protein 6.3 g/dL (6.3-8.3) 09/29/18 05:59 Albumin 3.7 g/dL (3.5-5.0) 09/29/18 05:59 Globulin 2.5 gm/dL (2.2-3.9) 09/29/18 05:59 Albumin/Globulin Ratio 1.5 (1.0-2.1) 09/29/18 05:59 TSH 3rd Generation 4.30 mIU/L (0.46-4.68) 09/26/18 01:23 Urine Opiates Screen Negative (NEGATIVE) 09/26/18 14:23 Urine Methadone Screen Negative (NEGATIVE) 09/26/18 14:23 Ur Barbiturates Screen Negative (NEGATIVE) 09/26/18 14:23 Ur Phencyclidine Scrn Negative (NEGATIVE) 09/26/18 14:23 Ur Amphetamines Screen Negative (NEGATIVE) 09/26/18 14:23 U Benzodiazepines Scrn Negative (NEGATIVE) 09/26/18 14:23 U Oth Cocaine Metabols Negative (NEGATIVE) 09/26/18 14:23 U Cannabinoids Screen Negative (NEGATIVE) 09/26/18 14:23 - Hospital Course Hospital Course: Patient is a 53 year old male with a past medical history of HTN, IDDM2 who reports sudden onset of palpitations at 8 pm on 09/25/18. Pt reports balta he was watching TV, when he felt a "punch" in the left side of his chest and proceeded to have palpitations. He denies any other chest pain other than that initial "punch," but reports that these palpitations were constant and associated with lightheadedness, dizziness, nausea, and some blurry vision. He called 911, and HR was noted to be in the 180s by EMS, and they proceeded to give Adenosine which stopped all symptoms. In the ED, EKG shows NSR at 71, no STTW changes, TWI in lead II. Pt received ASA 325 mg PO in the ED as well. Currently, pt has no complaints. Patient denies any fevers, chills, headache, associated falls or trauma, recent medication changes, OTC medication changes, recent alcohol use, increased stress, denies dyspnea or chest pain on exertion. Pt has never had these symptoms before. A few months ago, pt fell off of a ladder and hit his head on a bathtub. He was treated in a hospital in [place], and he reports that "tests was okay "at that time. PMD: Moiz PMH: HTN, IDDM2 PSH: Appendectomy 7 years ago Meds: Insulin Glargine 35 units in the morning, Enalapril 10 mg PO BID Family: "Everyone has diabetes" Allergies: NKDA FHx: strong family history of diabetes. father passed at age 70. Mother when he was 12 years old. Siblings passed at young age as well. 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 Occasional EtOH use. 7 pack year history (quit 4 years ago). Denies drug use. Patient is a 53 year old male with a past medical history of HTN, IDDM2 who reports sudden onset of palpitations. Found to be in SVT in the field, medically cardioverted with Adenosine. Asymptomatic on admission. Treated for: SVT, requiring medical cardioversion with SVT; r/o ischemic heart disease, Electrolyte Abnormalities -hypokalemia, hypophosphatemia, hypomagnesemia, Hx of IDDM2, Hx of HTN Pt had his 2nd troponin positive, neg 3rd, HgbA1c is 8.6 on July 2018 admission Pt was given: Toprol XL 25 QD Enalapril 10 BID ASA 81 qd Lovenox 80 sc STAT Phosphorous to be repleted with Neutro phos 1 packet QID Potassium (3.1), 60meq given Magnesium (1.7) to be repleted with Magnesium 1g IVPB x1 Continue home Lantus 35 u SC in the morning 8am before breakfast ISS low ACHS Imanging and Diagnostics: Echo: EF 75% Cardiology Dr Sanchez consulted f/u recs normal stress test normal lexicon stress test CXR shows pulmonary vascular congestion; similar to prior CXR on July admission. F/u official reading EKG neg x2 neg urine drug screen The following instructions were gone over with the patient through the use of Lebanese Interpretor Service provided by [employer] [id number]): 1). Schedule follow up with Primary Care Physician Dr. Rockwell to take place in the next 7 days. 2). Through Dr. Rockwell obtain further evaluation by a Supervisor Phosphoric Acid for your rapid heart rate which at the time of your discharge had resolved. 3). You stated that you had enough of the Lantus Insulin at home as provided by Dr. Rockwell. Please continue to use as instructed by Dr. Rockwell. 4). The following 2 prescriptions were sent to your [facility] located at [address] [place] [address] in [place], [place] as requested by you. Please use as directed: Metoprolol Succinate 25 mg, 1 tablet by mouth 1x/day (2 PM), Dispense #30, NO refills Enalapril 10 mg, 1 tablet by mouth 2x/day (8 AM and 8 PM), Dispense #60, NO refills Atorvastatin 10 mg, 1 tablet by mouth 1x/day (8 PM) 5). Please be careful of your coffee and caffeine intake 6). Please take care and be well. this is a summary please refer to [facility] for complete records Discharge Exam - Head Exam Head Exam: NORMAL INSPECTION - Additional Findings Additional findings: - Constitutional Appears: Well, Non-toxic, No Acute Distress - Head Exam Head Exam: ATRAUMATIC, NORMAL INSPECTION - Eye Exam Eye Exam: EOMI, Normal appearance, PERRL Pupil Exam: NORMAL ACCOMODATION, PERRL - ENT Exam ENT Exam: Mucous Membranes Moist - Neck Exam Neck Exam: Normal Inspection. absent: Thyromegaly - Respiratory Exam Respiratory Exam: Clear to Ausculation Bilateral, NORMAL BREATHING PATTERN. absent: Wheezes - Cardiovascular Exam Cardiovascular Exam: RRR, +S1, +S2 - GI/Abdominal Exam GI & Abdominal Exam: Soft. absent: Rigid, Tenderness - Extremities Exam Extremities Exam: Normal Capillary Refill, Normal Inspection. absent: Calf Tenderness - Neurological Exam Neurological Exam: Alert, Awake, CN II-XII Intact, Oriented x3 - Psychiatric Exam Psychiatric exam: Normal Affect, Normal Mood - Skin Skin Exam: Dry, Normal Color, Warm Discharge Plan - Discharge Medications Prescriptions: Atorvastatin [Lipitor] 10 mg PO DIN #30 tab Enalapril Maleate [Vasotec] 10 mg PO BID #60 tab Metoprolol Succinate XL [Toprol XL] 25 mg PO DAILY #30 tab - Follow Up Plan Condition: FAIR Disposition: HOME/ ROUTINE Instructions: Chest Pain (DC), Supraventricular Tachycardia (SVT), Atorvastatin, Enalapril, Metoprolol, Hypertension (DC), Hypertension (GEN) Additional Instructions: The following instructions were gone over with the patient through the use of Lebanese Interpretor Service provided by [employer] (Марина [id number]): 1). Schedule follow up with Primary Care Physician Dr. Rockwell to take place in the next 7 days. 2). Through Dr. Rockwell obtain further evaluation by a Supervisor Phosphoric Acid for your rapid heart rate which at the time of your discharge had resolved. 3). You stated that you had enough of the Lantus Insulin at home as provided by Dr. Rockwell. Please continue to use as instructed by Dr. Rockwell. 4). The following 2 prescriptions were sent to your [facility] located at [address] [place] [address] in [place], [place] as requested by you. Please use as directed: Metoprolol Succinate 25 mg, 1 tablet by mouth 1x/day (2 PM), Dispense #30, NO refills Enalapril 10 mg, 1 tablet by mouth 2x/day (8 AM and 8 PM), Dispense #60, NO refills 5). Please be careful of your coffee and caffeine intake 6). Please take care and be well. Las siguientes instrucciones se repasaron con el paciente mediante el uso del Servicio de Interpretacin [employer] proporcionado por [employer] (Марина [id number]): 1). Programe el seguimiento con el mdico de atencin primaria Dr. Rockwell para que se realice en los prximos 7 rodriguez. 2). A travs del Dr. Rockwell, obtenga nick evaluacin adicional por parte de un cardilogo para determinar rosado rpido ritmo cardaco que, en el momento de rosado martine, se haba resuelto. 3). Afirm que audie suficiente insulina Lantus en rosado casa segn lo brindado por el Dr. Rockwell. Por favor contine usando segn lo indicado por el Dr. Rockwell. 4). Las siguientes 2 recetas se enviaron a rosado farmacia [facility] en [address] [place] [address] en [place], [place] a solicitud de usted. Por favor use kristin se indica: Succinato de metoprolol 25 mg, 1 tableta por va oral 1x / da (2 PM), dispensado # 30, NO repuestos Enalapril 10 mg, 1 comprimido por va oral 2x / da (8 AM y 8 PM), dispensado # 60, NO repuestos 5). Por favor ten cuidado con tu cafe y cafena. 6). Por favor cuidate y estar yesika.
[2018-09-29] MEDS ORDERED: Pneumococcal 23-Valent Vaccine IM ONE (12:00)
== END 2018-09-29 11:48 | disposition home or self-care (01) | DRG 201 ==
LOC: C.ER 00:59 → C.9E 02:07 → C.5S 04:12
PROVIDERS: ADMIT Internal Medicine; ATTEND Internal Medicine
DX: I47.1 Supraventricular tachycardia (principal); E83.42 Hypomagnesemia; I10 Essential (primary) hypertension; E11.9 Type 2 diabetes mellitus without complications; R74.8 Abnormal levels of other serum enzymes; I25.9 Chronic ischemic heart disease, unspecified; E87.6 Hypokalemia; E83.39 Other disorders of phosphorus metabolism; Z87.891 Personal history of nicotine dependence; Z83.3 Family history of diabetes mellitus; Z79.4 Long term (current) use of insulin

== ENCOUNTER 2018-12-01 00:37 | Emergency (ER) | payer MEDICAID, OTHER ==
[2018-12-01 00:44] VITALS: O2SAT 99
[2018-12-01 02:20] LABS: BASO % 0.4 % (0.0-2.0); EOS % 0.1 % (0.0-4.0); LYMPH # 1.3 K/uL (1.0-4.3); LYMPH % 10.8 % (20.0-40.0); MEAN CELL VOLUME 85.1 fL (80.0-94.0); MEAN CORPUSCULAR HEMOGLOBIN 29.6 pg (27.0-31.0); MEAN CORPUSCULAR HGB CONC 34.8 g/dL (33.0-37.0); MEAN PLATELET VOLUME 8.8 fL (7.2-11.7); MONO # 1.1 K/uL (0.0-0.8); MONO % 9.1 % (0.0-10.0); NEUT # 9.4 K/uL (1.8-7.0); NEUT % 79.6 % (50.0-75.0); RBC 4.4 Mil/uL (4.40-5.90); RED CELL DISTRIBUTION WIDTH 12.8 % (11.5-14.5); WHITE BLOOD COUNT 11.8 K/uL (4.8-10.8)
--- NOTE | 2018-12-01 02:23 | C.PDOC ---
History Of Present Illness 53 year old male, as per family had a seizure tonight last 5-6 minutes, eventually resolving on its own, back to baseline now as per family. Patient had a fall in April 2018 where he fell on some stairs and since then he has been having intermittent seizures, last one was 2 months ago. He does take medications for it and is compliant. Patient is currently wearing a portable eeg on his head which he is required to have on for 48 hours, he has an appointment at [facility] tomorrow at 4pm to get monitor removed. He is currently complaining of mild headache but otherwise no other complaints. Time Seen by Provider: 12/01/18 01:24 Chief Complaint (Nursing): Seizure History Per: Patient, Family History/Exam Limitations: no limitations Recent Seizure Activity Began: Just Before Arrival Number Of Seizures: One Length Of Seizures (Duration): Minutes (5-6) Quality Of Seizure: Generalized Precipitating Factor(s): None Recent travel outside of the [place]: No Past Medical History Reviewed: Historical Data, Nursing Documentation, Vital Signs Vital Signs: Last Vital Signs Temp 98.9 F 12/01/18 00:42 Pulse 89 12/01/18 00:42 Resp 22 12/01/18 00:42 BP 152/79 H 12/01/18 00:42 Pulse Ox 99 12/01/18 00:42 - Medical History PMH: HTN, Seizures Denies: Chronic Kidney Disease Surgical History: Appendectomy Family History: States: Unknown Family Hx - Social History Hx Alcohol Use: No Hx Substance Use: No - Immunization History Hx Tetanus Toxoid Vaccination: No Hx Influenza Vaccination: No Hx Pneumococcal Vaccination: No Review Of Systems Constitutional: Negative for: Fever, Chills Cardiovascular: Negative for: Chest Pain, Palpitations Respiratory: Negative for: Cough, Shortness of Breath Gastrointestinal: Negative for: Nausea, Vomiting Genitourinary: Negative for: Dysuria, Incontinence, Hematuria Musculoskeletal: Negative for: Back Pain Skin: Negative for: Rash Neurological: Positive for: Seizures, Headache. Negative for: Weakness, Numbness Physical Exam - Physical Exam Appears: Non-toxic Skin: Normal Color, Warm Head: Atraumatic, Normacephalic, Other (Portable eeg with scalp electrodes in place) Eye(s): bilateral: Normal Inspection, PERRL, EOMI Nose: Normal Oral Mucosa: Moist Tongue: Normal Appearing, No Laceration Neck: Normal, Supple Chest: Symmetrical, No Tenderness Cardiovascular: Rhythm Regular Respiratory: Normal Breath Sounds, No Rales, No Rhonchi, No Wheezing Gastrointestinal/Abdominal: Soft, No Tenderness Extremity: Normal ROM (x4) Neurological/Psych: Oriented x3, Normal Speech, Normal Motor, Normal Sensation, Other (No incontinence) ED Course And Treatment - Laboratory Results Result Diagrams: 12/01/18 02:13 12/01/18 02:13 O2 Sat by Pulse Oximetry: 99 Medical Decision Making Medical Decision Making: Plan; * Blood work Labs done and were unremarkable. Discussed getting CT head as well, however patient declined as he does not want any imaging while he has his portable EEG on. Results discussed with patient and family. Patient is AAOx3 with no complaints, wants to go home. Advised him to keep his appointment tomorrow at 14:00 at [facility], for removal of EEG and re-evaluation. No seizure activity noted in the ED. Disposition - Disposition Disposition: HOME/ ROUTINE Disposition Time: 03:10 Condition: STABLE Additional Instructions: KEMAL GRIJALVA, thank you for letting us take care of you today. Your provider was Aminah Rios MD and you were treated for NOT FEELING WELL. The emergency medical care you received today was directed at your acute symptoms. If you were prescribed any medication, please fill it and take as directed. It may take several days for your symptoms to resolve. Return to the Emergency Department if your symptoms worsen, do not improve, or if you have any other problems. Please contact your doctor or call one of the physicians/clinics you have been referred to that are listed on the Patient Visit Information form that is included in your discharge packet. Bring any paperwork you were given at discharge with you along with any medications you are taking to your follow up visit. Our treatment cannot replace ongoing medical care by a primary care provider outside of the emergency department. Thank you for allowing the [facility] team to be part of your care today. If you had an X-Ray or CT scan: A Radiologist will review the ED reading if any change in treatment is needed we will contact you. If you had a blood, urine, or wound culture: It will take several days for the results, if any change in treatment is needed we will contact you. If you had an STI test: It will take 48 hours for the results. Please call after 1 week if you have not heard back. Instructions: Seizures, Adult (DC) Forms: [facility] (Yi) Print Language: ROMANSH - Clinical Impression Clinical Impression: Seizure - Scribe Statement The provider has reviewed the documentation as recorded by the Scribtomas Chapman All medical record entries made by the Scribe were at my direction and personally dictated by me. I have reviewed the chart and agree that the record accurately reflects my personal performance of the history, physical exam, medical decision making, and the department course for this patient. I have also personally directed, reviewed, and agree with the discharge instructions and disposition.
[2018-12-01 02:50] VITALS: BP 150/85; PULSE 66; RESP 16; TEMP 98.3
[2018-12-01 02:55] LABS: BLOOD UREA NITROGEN 24 mg/dL (9-20); CALCIUM 9.7 mg/dl (8.6-10.4); GFR NON-AFRICAN AMERICAN > 60
== END 2018-12-01 03:10 | disposition home or self-care (01) ==
LOC: C.ER 00:37
DX: R56.9 Unspecified convulsions (principal)